=== PATIENT | male | born 2000 | race Caucasian/White ===

== ENCOUNTER 2024-05-28 23:45 | Outpatient (BNV) | payer OTHER, SELFPAY | END 2024-05-31 10:30 | PROVIDERS: Admitting Provider Psychiatry & Neurology Psychiatry; Visit Provider Specialist | DX: M79.604 Pain in right leg (principal) | CPT/HCPCS: 93971 ==

== ENCOUNTER 2024-05-28 23:45 | Outpatient (BNV) | payer OTHER, SELFPAY | END 2024-05-30 14:55 | PROVIDERS: Admitting Provider Psychiatry & Neurology Psychiatry; Visit Provider Nuclear Medicine | DX: R60.0 Localized edema (principal) | CPT/HCPCS: 72170; 73552; 73560 ==

== ENCOUNTER 2024-05-28 23:45 | Outpatient (BNV) | payer OTHER, SELFPAY | END 2024-06-03 17:35 | PROVIDERS: Admitting Provider Psychiatry & Neurology Psychiatry; Visit Provider Radiology Diagnostic Radiology | DX: F29 Unspecified psychosis not due to a substance or known physiological condition (principal); M25.561 Pain in right knee; M25.562 Pain in left knee | CPT/HCPCS: 70551; 73560 ==

== ENCOUNTER 2024-05-28 23:45 | Inpatient (IN) | payer OTHER, SELFPAY ==
--- NOTE | ~2024-05-28 | US_ITS ---
CLINICAL HISTORY: injury to right thigh, swelling, bruising pain Venous duplex ultrasound right lower extremity Comparison: None Findings: The visualized deep veins are fully compressible with normal Doppler color flow and spectral tracings. No popliteal cyst. IMPRESSION: 1. Negative for right lower extremity deep vein thrombosis. This document has been electronically signed by: Blayne Kumar MD on 05/31/2024 11:23:37
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
--- NOTE | ~2024-05-28 | XR_ITS ---
EXAMINATION: XR KNEE, LEFT CLINICAL INFORMATION: pt putting himself on the floor COMPARISON: None available. TECHNIQUE: 2 views of the left knee. FINDINGS: No fracture or joint effusion. Alignment is anatomic. Joint spaces are maintained. No abnormal soft tissue calcification. XR/XR knee LT 2V IMPRESSION: Unremarkable left knee. Electronically signed by: Paul Burr MD 06/04/2024 01:12 PM EST
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
--- NOTE | ~2024-05-28 | XR_ITS ---
EXAMINATION: XR KNEE, RIGHT CLINICAL INFORMATION: pt putting himself on the floor COMPARISON: Right knee 05/30/2024 TECHNIQUE: Two views of the right knee. FINDINGS: AP and lateral view right knee reveals no visible acute fracture, dislocation or bony erosive changes. The soft tissues are normal. XR/XR knee RT 2V IMPRESSION: Unremarkable right knee exam. Unchanged to previous study 05/30/2024. Electronically signed by: Paul Burr MD 06/04/2024 01:11 PM [facility]
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
[2024-05-29] MEDS: Nicotine 21 MG PATCH.TD24 TRANSDERMA (01:51)
[2024-05-29] MEDS: Nicotine Polacrilex 2 MG GUM 4 MG BUCCAL ×5 (01:52→13:13)
--- NOTE | 2024-05-29 01:52 | PC.NURSE ---
@0130 pt became elevated after NRT not available yet. Pt called 911 emergency line on both pt phones, redirection attempted. Provider contacted about NRT, pt swearing at emergency personnel on phone, security also notified. Pt hung up both phones and able to talk about what happened with [facility]. Pt went to group room A to work out my shit Pt in Group room A, wearing only underwear, performing sit up and breathing excersises. RN approached pt with NRT patch and gum as per pt request, pt calmer, cooperative with RN, demonstrated a back bend to RN. Pt then put johnnies back on and returned to kitchen area, accepted water and juice at this time. @0145 [place] PD called unit to discuss pt behaviour, told RN pt had told them you're fired repeatedly and requested badge numbers. Emergency personnel state that if pt continues to harass them, an officer will charge pt with wrongful use of 911. Pt informed and stated I dare them to try, I will call way above their head higher ups. They're useless. remained in relative control at that time.
[2024-05-29 04:00] VITALS: BMI 40.7
[2024-05-29] MEDS: Acetaminophen 325 MG TABLET 650 MG PO (06:02)
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
[2024-05-29 08:00] VITALS: BP 161/95; PULSE 110; RESP 18; TEMP 36.3; O2SAT 98
[2024-05-29] MEDS: hydrOXYzine HCL 25 MG TABLET PO (09:09)
[2024-05-29] MEDS: OLANZapine ODT 10 MG TAB.RAPDIS TRANSLINGU (09:09)
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
[2024-05-29 15:16] VITALS: BP 138/100
[2024-05-29] MEDS: cloNIDine HCL 0.1 MG TABLET PO ×2 (15:16→21:48)
[2024-05-29 20:15] VITALS: BP 133/69; PULSE 108; TEMP 37; O2SAT 96
[2024-05-29] MEDS: OLANZapine 10 MG TABLET PO (21:44)
[2024-05-29] MEDS: Divalproex Sodium 250 MG TABLET.DR PO (21:45)
[2024-05-29] MEDS: Melatonin 3 MG TABLET 6 MG PO (21:46)
[2024-05-29] MEDS: traZODone HCL 50 MG TABLET PO (21:46)
[2024-05-29 21:48] VITALS: BP 133/69
[2024-05-30] MEDS: Nicotine Polacrilex 2 MG GUM 4 MG BUCCAL ×3 (03:35→21:05)
[2024-05-30] MEDS: Acetaminophen 325 MG TABLET 650 MG PO ×3 (04:05→22:41)
[2024-05-30 09:45] VITALS: BP 152/94
[2024-05-30] MEDS: Divalproex Sodium 250 MG TABLET.DR PO ×2 (09:45→21:04)
[2024-05-30] MEDS: cloNIDine HCL 0.1 MG TABLET PO ×2 (09:45→21:05)
[2024-05-30] MEDS: Nicotine 21 MG PATCH.TD24 TRANSDERMA (09:51)
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
[2024-05-30] MEDS: hydrOXYzine HCL 25 MG TABLET PO ×2 (12:48→22:25)
[2024-05-30] MEDS: OLANZapine ODT 10 MG TAB.RAPDIS TRANSLINGU ×2 (15:35→22:25)
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
[2024-05-30 20:00] VITALS: BP 141/78; PULSE 74; RESP 18; TEMP 36.4; O2SAT 98
[2024-05-30] MEDS: traZODone HCL 50 MG TABLET PO (21:04)
[2024-05-30] MEDS: Melatonin 3 MG TABLET 6 MG PO (21:04)
[2024-05-30] MEDS: OLANZapine 10 MG TABLET PO (21:05)
[2024-05-31] MEDS: traZODone HCL 50 MG TABLET PO ×2 (01:16→20:42)
[2024-05-31] MEDS: Nicotine Polacrilex 2 MG GUM 4 MG BUCCAL ×4 (01:16→20:42)
[2024-05-31] MEDS: Ibuprofen 800 MG TABLET PO ×2 (01:16→16:17)
[2024-05-31] MEDS: hydrOXYzine HCL 25 MG TABLET PO ×3 (06:15→18:08)
[2024-05-31] MEDS: Acetaminophen 325 MG TABLET 650 MG PO ×3 (06:57→18:08)
--- NOTE | 2024-05-31 08:36 | P.PNPSI_ITS ---
Subjective Subjective Date of Service: 05/31/24 Reason For Visit: biploar disorder, attention deificit/hyper act. Interim History: Met with patient. Discussed with Nursing. Also noted hospitalist evaluation yesterday and ordering of lower leg ultrasound. Otherwise conservative manage ment for right leg swelling and pain. Patient reports today that swelling is getting better as is bruising. Reports having nightmares that his family is in danger which is upsetting. Also talking about martial arts and Chinese culture. No SI or HI. Reports overall feeling safe. Regarding medications would like long-acting medications if possible also remains here for discharge Medication Compliance: Intermittent Side effects from medications: No Attending Groups: Intermittent Review of Systems Acute medical concerns: No Review of Systems Review of Systems Negative except for that which is stated in the HPI Constitutional: Reports as per HPI Eyes: Reports as per HPI Reports as per HPI Cardiovascular: Reports as per HPI Respiratory: Reports as per HPI Gastrointestinal: Reports as per HPI Genitourinary: Reports as per HPI Musculoskeletal: Reports as per HPI Skin/Breast: Reports as per HPI Reports as per HPI Psychiatric: Reports as per HPI Endocrine: Reports as per HPI Hematologic/Lymphatic: Reports as per HPI Allergic/Immunologic: Reports as per HPI Mental Status Exam Mental Status Exam Patient Appearance: Disheveled Patient Orientation: Person Level of Consciousness: Appropriate Patient Behavior: Cooperative and Anxious Mood Description: Blunted Affect Description: Withdrawn Ability to Follow Directions: Fair Speech Pattern: Clear Diagnostics Vital Signs (24Hr): Vital Signs - 24 hr 05/30/24 09:45 05/30/24 20:00 Temperature 97.5 F Pulse Rate 74 Respiratory Rate 18 Blood Pressure 152/94 H 141/78 H Pulse Oximetry 98 Oxygen Delivery Method Room Air BMI result Body Mass Index 40.7 Medications Medications Current Medications Acetaminophen (Acetaminophen 325 Mg Tablet) 650 mg PO Q6H PRN PRN Reason: Headache/Pain Mild Scale (1-3) Last Admin: 05/31/24 06:57 Dose: 650 mg Al Hydroxide/Mg Hydroxide (Magnesium Hydrox/Alum Hydrox 30 Ml Oral.Susp) 30 ml PO Q6H PRN PRN Reason: Heartburn/Nausea Clonidine HCl (Clonidine Hcl 0.1 Mg Tablet) 0.1 mg PO BID [facility]; Protocol Last Admin: 05/30/24 21:05 Dose: 0.1 mg Divalproex Sodium (Divalproex Sodium 250 Mg Tablet.Dr) 250 mg PO BID [facility] Last Admin: 05/30/24 21:04 Dose: 250 mg Hydroxyzine HCl (Hydroxyzine Hcl 25 Mg Tablet) 25 mg PO Q6H PRN PRN Reason: Anxiety Last Admin: 05/31/24 06:15 Dose: 25 mg Ibuprofen (Ibuprofen 800 Mg Tablet) 800 mg PO Q8H PRN PRN Reason: muscle pain Last Admin: 05/31/24 01:16 Dose: 800 mg Magnesium Hydroxide (Milk Of Magnesia 30 Ml Oral.Susp) 30 ml PO DAILY PRN PRN Reason: Constipation Melatonin (Melatonin 3 Mg Tablet) 6 mg PO BEDTIME PRN PRN Reason: Insomnia Last Admin: 05/30/24 21:04 Dose: 6 mg Nicotine (Nicotine 21 Mg Patch.Td24) 21 mg TRANSDERMA DAILY [facility] Last Admin: 05/30/24 09:51 Dose: 21 mg Nicotine Polacrilex (Nicotine Polacrilex 2 Mg Gum) 4 mg BUCCAL Q1H PRN PRN Reason: Nicotine Cravings Last Admin: 05/31/24 01:16 Dose: 4 mg Olanzapine (Olanzapine Odt 10 Mg Tab.Rapdis) 10 mg TRANSLINGU BID PRN PRN Reason: agitation Last Admin: 05/30/24 22:25 Dose: 10 mg Olanzapine (Olanzapine 10 Mg Tablet) 10 mg PO BEDTIME [facility] Last Admin: 05/30/24 21:05 Dose: 10 mg Trazodone HCl (Trazodone Hcl 50 Mg Tablet) 50 mg PO BEDTIME MRX1 PRN PRN Reason: Insomnia Last Admin: 05/31/24 01:16 Dose: 50 mg Allergies Allergies Allergy/AdvReac Type Severity Reaction Status Date / Time No Known Allergies Allergy Verified 05/29/24 00:47 Assessment & Plan Assessment & Plan (1) Medical clearance for psychiatric admission: Status: Acute Code(s): Z00.8 - Encounter for other general examination (2) Right leg swelling: Status: Acute Code(s): M79.89 - Other specified soft tissue disorders (3) Bipolar 1 disorder: Status: Acute Code(s): F31.9 - Bipolar disorder, unspecified (4) ADHD: Status: Acute Code(s): F90.9 - Attention-deficit hyperactivity disorder, unspecified type Plan Patient is a 23-year-old male with history of bipolar disorder and ADHD, who was brought to ER on a section 12 via police after he was found wandering and making suicidal statements. Plan: 12B 15 minute safety checks Obtain collateral Reviewed home medications from crisis report, continue home medications. Start: Depakote 250mg PO BID Zyprexa 10mg PO bedtime clonidine 0.1mg PO BID Discharge planning 05/30/2024: Declining medications. Encouraged adherence. Right leg x-rays unremarkable for fractures. Will ask for hospitalist evaluation around any other testing recommendations and/or management. Add Motrin. 05/31/2024: Patient requesting long-acting medications and will change Depakote to extended release 500 mg bedtime. Reason for continued inpatient stay Substantial Risk for: inability to function Time Spent With Patient Time: Total time managing care of this patient today ____ minutes.
[2024-05-31 08:43] VITALS: BP 121/65; PULSE 108; RESP 16; TEMP 36.9; O2SAT 98
[2024-05-31 08:45] VITALS: BP 121/65
[2024-05-31] MEDS: OLANZapine ODT 10 MG TAB.RAPDIS TRANSLINGU (08:45)
[2024-05-31] MEDS: cloNIDine HCL 0.1 MG TABLET PO ×2 (08:45→20:42)
[2024-05-31] MEDS: Nicotine 21 MG PATCH.TD24 TRANSDERMA (08:45)
[2024-05-31] MEDS: Divalproex Sodium 250 MG TABLET.DR PO (08:45)
--- NOTE | 2024-05-31 17:59 | PC.NURSE ---
Pt called 911 and asked to speak to state police to report t/w for denying access to phone. This is despite the fact pt was granted access to phone yesterday and informed at that time he would not be allowed access again.
[2024-05-31 20:00] VITALS: BP 159/109; PULSE 110; RESP 18; TEMP 36.7; O2SAT 96
[2024-05-31] MEDS: OLANZapine 10 MG TABLET PO (20:42)
[2024-05-31] MEDS: Divalproex Sodium ER 500 MG TAB.ER.24H PO (20:42)
[2024-05-31] MEDS: Melatonin 3 MG TABLET 6 MG PO (20:42)
[2024-06-01 08:00] VITALS: BP 156/87; PULSE 123; RESP 18; TEMP 36.9; O2SAT 96
[2024-06-01] MEDS: Nicotine 21 MG PATCH.TD24 TRANSDERMA (09:01)
[2024-06-01] MEDS: cloNIDine HCL 0.1 MG TABLET PO ×2 (09:01→21:31)
[2024-06-01] MEDS: Ibuprofen 800 MG TABLET PO ×2 (09:31→17:06)
[2024-06-01] MEDS: Acetaminophen 325 MG TABLET 650 MG PO ×2 (11:25→16:31)
[2024-06-01] MEDS: OLANZapine ODT 10 MG TAB.RAPDIS TRANSLINGU ×2 (13:13→15:06)
[2024-06-01] MEDS: hydrOXYzine HCL 25 MG TABLET PO ×2 (13:13→21:33)
[2024-06-01] MEDS: Nicotine Polacrilex 2 MG GUM 4 MG BUCCAL ×4 (13:34→23:28)
--- NOTE | 2024-06-01 14:51 | P.PNPSI_ITS ---
Subjective Subjective Date of Service: 06/01/24 Reason For Visit: biploar disorder, attention deificit/hyper act. Subjective Notes: Conditional Voluntary Interim History: Active on unit. disorganized. grandiose. Hyperverbal. Circumstantial. Pt stated, you guys blocked 112, if you do that, its a violation. I'm going to jorge you guys out and fire everyone. [employer] will protect you and everyone. I only want to kill bad people . Signed CV. pt asked for increase in medication. Increased Depakote to 1000mg PO bedtime. Medication Compliance: Yes Side effects from medications: No Mental Status Exam Mental Status Exam Patient Appearance: Disheveled Patient Orientation: Person, Place and Situation Level of Consciousness: Awake and Restless Patient Behavior: Talkative, Swearing and Good Eye Contact Mood Description: Expansive Affect Description: Labile Ability to Follow Directions: Fair Speech Pattern: Clear, Rambling, Loud, Pressured and Includes Profanity Delusions: Grandiose Thought Process: Racing Thought Content: positive for Circumstantial and positive for Homicidal Ideation Judgement: Poor Diagnostics Vital Signs (24Hr): Vital Signs - 24 hr 05/31/24 20:00 06/01/24 08:00 Temperature 98.0 F 98.5 F Pulse Rate 110 H 123 H Respiratory Rate 18 18 Blood Pressure 159/109 H 156/87 H Pulse Oximetry 96 96 Oxygen Delivery Method Room Air Room Air BMI result Body Mass Index 40.7 Medications Medications Current Medications Acetaminophen (Acetaminophen 325 Mg Tablet) 650 mg PO Q6H PRN PRN Reason: Headache/Pain Mild Scale (1-3) Last Admin: 06/01/24 11:25 Dose: 650 mg Al Hydroxide/Mg Hydroxide (Magnesium Hydrox/Alum Hydrox 30 Ml Oral.Susp) 30 ml PO Q6H PRN PRN Reason: Heartburn/Nausea Clonidine HCl (Clonidine Hcl 0.1 Mg Tablet) 0.1 mg PO BID [facility]; Protocol Last Admin: 06/01/24 09:01 Dose: 0.1 mg Divalproex Sodium (Divalproex Sodium Er 500 Mg Tab.Er.24h) 1,000 mg PO BEDTIME [facility] Hydroxyzine HCl (Hydroxyzine Hcl 25 Mg Tablet) 25 mg PO Q6H PRN PRN Reason: Anxiety Last Admin: 06/01/24 13:13 Dose: 25 mg Ibuprofen (Ibuprofen 800 Mg Tablet) 800 mg PO Q8H PRN PRN Reason: muscle pain Last Admin: 06/01/24 09:31 Dose: 800 mg Magnesium Hydroxide (Milk Of Magnesia 30 Ml Oral.Susp) 30 ml PO DAILY PRN PRN Reason: Constipation Melatonin (Melatonin 3 Mg Tablet) 6 mg PO BEDTIME PRN PRN Reason: Insomnia Last Admin: 05/31/24 20:42 Dose: 6 mg Nicotine (Nicotine 21 Mg Patch.Td24) 21 mg TRANSDERMA DAILY [facility] Last Admin: 06/01/24 09:01 Dose: 21 mg Nicotine Polacrilex (Nicotine Polacrilex 2 Mg Gum) 4 mg BUCCAL Q1H PRN PRN Reason: Nicotine Cravings Last Admin: 06/01/24 13:34 Dose: 4 mg Olanzapine (Olanzapine Odt 10 Mg Tab.Rapdis) 10 mg TRANSLINGU BID PRN PRN Reason: agitation Last Admin: 06/01/24 13:13 Dose: 10 mg Olanzapine (Olanzapine 10 Mg Tablet) 10 mg PO BEDTIME [facility] Last Admin: 05/31/24 20:42 Dose: 10 mg Trazodone HCl (Trazodone Hcl 50 Mg Tablet) 50 mg PO BEDTIME MRX1 PRN PRN Reason: Insomnia Last Admin: 05/31/24 20:42 Dose: 50 mg Allergies Allergies Allergy/AdvReac Type Severity Reaction Status Date / Time No Known Allergies Allergy Verified 05/29/24 00:47 Assessment & Plan Assessment & Plan (1) Medical clearance for psychiatric admission: Status: Acute Code(s): Z00.8 - Encounter for other general examination (2) Right leg swelling: Status: Acute Code(s): M79.89 - Other specified soft tissue disorders (3) Bipolar 1 disorder: Status: Acute Code(s): F31.9 - Bipolar disorder, unspecified (4) ADHD: Status: Acute Code(s): F90.9 - Attention-deficit hyperactivity disorder, unspecified type Plan Patient is a 23-year-old male with history of bipolar disorder and ADHD, who was brought to ER on a section 12 via police after he was found wandering and making suicidal statements. Plan: 12B 15 minute safety checks Obtain collateral Reviewed home medications from crisis report, continue home medications. Start: Depakote 250mg PO BID Zyprexa 10mg PO bedtime clonidine 0.1mg PO BID Discharge planning 05/30/2024: Declining medications. Encouraged adherence. Right leg x-rays un remarkable for fractures. Will ask for hospitalist evaluation around any other testing recommendations and/or management. Add Motrin. 05/31/2024: Patient requesting long-acting medications and will change Depakote to extended release 500 mg bedtime. 06/01:Active on unit. disorganized. grandiose. Hyperverbal. Circumstantial. Pt stated, you guys blocked 112, if you do that, its a violation. I'm going to jorge you guys out and fire everyone. [employer] will protect you and everyone. I only want to kill bad people . Signed CV. pt asked for increase in medication. Increased Depakote to 1000mg PO bedtime. Patient educated on: medication risk/benefits Reason for continued inpatient stay Substantial Risk for: harm to others and med/psych decompensation Time Spent With Patient Time: Total time managing care of this patient today _20___ minutes.
[2024-06-01] MEDS: Lidocaine 4 % Patch ADH..PATCH 2 PATCH TRANSDERMA (17:06)
[2024-06-01 20:00] VITALS: BP 131/73; PULSE 115; RESP 20; TEMP 36.4
[2024-06-01] MEDS: Divalproex Sodium ER 500 MG TAB.ER.24H 1000 MG PO (21:32)
[2024-06-01] MEDS: traZODone HCL 50 MG TABLET PO (21:32)
[2024-06-01] MEDS: Melatonin 3 MG TABLET 6 MG PO (21:33)
[2024-06-01] MEDS: OLANZapine 10 MG TABLET PO (21:34)
[2024-06-02] MEDS: traZODone HCL 50 MG TABLET PO (01:25)
[2024-06-02] MEDS: Ibuprofen 800 MG TABLET PO ×3 (01:26→18:12)
[2024-06-02 08:30] VITALS: BP 161/108; PULSE 110; RESP 20; TEMP 35.8; O2SAT 97
[2024-06-02] MEDS: Nicotine 21 MG PATCH.TD24 TRANSDERMA (08:35)
[2024-06-02] MEDS: hydrOXYzine HCL 25 MG TABLET PO ×2 (08:36→16:49)
[2024-06-02] MEDS: cloNIDine HCL 0.1 MG TABLET PO ×2 (08:36→21:11)
[2024-06-02] MEDS: OLANZapine ODT 10 MG TAB.RAPDIS TRANSLINGU ×2 (08:36→15:18)
[2024-06-02] MEDS: Nicotine Polacrilex 2 MG GUM 4 MG BUCCAL ×4 (09:03→18:44)
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
[2024-06-02] MEDS: Simethicone 80 MG TAB.CHEW PO ×3 (11:35→21:11)
[2024-06-02] MEDS: Acetaminophen 325 MG TABLET 650 MG PO ×2 (11:35→21:10)
[2024-06-02 19:40] VITALS: BP 168/92; PULSE 99; TEMP 36.6; O2SAT 94
[2024-06-02] MEDS: Divalproex Sodium ER 500 MG TAB.ER.24H 1000 MG PO (21:10)
[2024-06-02] MEDS: clonazePAM 0.5 MG TABLET PO (21:10)
[2024-06-02] MEDS: OLANZapine 10 MG TABLET PO (21:10)
[2024-06-02 21:11] VITALS: BP 168/92
[2024-06-02] MEDS: Melatonin 3 MG TABLET 6 MG PO (21:11)
[2024-06-03] MEDS: Nicotine Polacrilex 2 MG GUM 4 MG BUCCAL ×5 (00:38→19:20)
[2024-06-03] MEDS: traZODone HCL 50 MG TABLET PO ×3 (00:38→23:06)
[2024-06-03] MEDS: Ibuprofen 800 MG TABLET PO ×3 (05:35→19:03)
[2024-06-03] MEDS: Acetaminophen 325 MG TABLET 650 MG PO (05:35)
[2024-06-03] MEDS: Magnesium Hydrox/Alum Hydrox 30 ML ORAL.SUSP PO (05:35)
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
--- NOTE | 2024-06-03 07:26 | PC.NURSE ---
At approximately 0550, this patient walked by a trans peer, stating loudly [employer] Drag Race is on, and I'm a homophobe! I'm not watching it! This conventional underwriter attempted to set boundaries with this patient, but he simply walked quickly down the hallway, leaving this conventional underwriter to comfort the peer. This patient later apologized to the peer who had been upset by the comment.
[2024-06-03 08:00] VITALS: BP 145/90; PULSE 103; RESP 18; TEMP 36.6; O2SAT 97
[2024-06-03] MEDS: clonazePAM 0.5 MG TABLET PO ×3 (08:42→20:27)
[2024-06-03] MEDS: cloNIDine HCL 0.1 MG TABLET PO ×2 (08:42→20:27)
[2024-06-03] MEDS: OLANZapine ODT 10 MG TAB.RAPDIS TRANSLINGU ×2 (08:43→19:03)
[2024-06-03] MEDS: Simethicone 80 MG TAB.CHEW PO ×3 (08:43→20:27)
[2024-06-03] MEDS: Nicotine 21 MG PATCH.TD24 TRANSDERMA (08:46)
[2024-06-03] MEDS: hydrOXYzine HCL 25 MG TABLET PO ×2 (09:53→18:38)
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
[2024-06-03] MEDS: chlorproMAZINE HCl 100 MG TABLET PO ×3 (10:42→23:06)
[2024-06-03] MEDS: Methylphenidate HCl 5 MG TABLET PO (13:10)
[2024-06-03 20:00] VITALS: BP 141/90; PULSE 132; RESP 15; TEMP 36.5; O2SAT 97
[2024-06-03] MEDS: OLANZapine 10 MG TABLET 20 MG PO (20:27)
[2024-06-03] MEDS: Divalproex Sodium ER 500 MG TAB.ER.24H 1500 MG PO (20:28)
[2024-06-03] MEDS: Melatonin 3 MG TABLET 6 MG PO (23:06)
[2024-06-04] MEDS: Nicotine Polacrilex 2 MG GUM 4 MG BUCCAL ×5 (00:05→18:17)
[2024-06-04] MEDS: Milk of Magnesia 30 ML ORAL.SUSP PO (05:23)
[2024-06-04] MEDS: hydrOXYzine HCL 25 MG TABLET PO ×3 (06:30→20:47)
[2024-06-04 07:00] VITALS: BMI 41.7
[2024-06-04 10:37] VITALS: BP 151/94; PULSE 122; RESP 16; TEMP 36.9; O2SAT 99
[2024-06-04] MEDS: Simethicone 80 MG TAB.CHEW PO ×3 (10:42→22:31)
[2024-06-04] MEDS: Nicotine 21 MG PATCH.TD24 TRANSDERMA (10:42)
[2024-06-04] MEDS: cloNIDine HCL 0.1 MG TABLET PO ×2 (10:42→22:30)
[2024-06-04] MEDS: Methylphenidate HCl 5 MG TABLET PO (10:42)
[2024-06-04] MEDS: clonazePAM 0.5 MG TABLET PO ×3 (10:42→22:30)
[2024-06-04] MEDS: chlorproMAZINE HCl 100 MG TABLET PO ×4 (11:32→22:31)
[2024-06-04] MEDS: OLANZapine ODT 10 MG TAB.RAPDIS TRANSLINGU (14:19)
--- NOTE | 2024-06-04 14:31 | P.PNPSI_ITS ---
Subjective Subjective Date of Service: 06/04/24 Reason For Visit: biploar disorder, attention deificit/hyper act. Subjective Notes: Conditional Voluntary and 3 Day Healthcare Proxy: No Guardianship: No Medical Problems Affecting Mental Status: No Interim History: Angry, threatening to this sign writer hand. Demanding discharge I will liam you. Team reports chlorpromazine helps, pt slept 5 hours. Scheduled chlorpromazine to 100 mg tid Tolerated Ritalin I need more Overall calmer Worried we will make him into a zombie. Education attempted Brief interactions with pt as he is threatening and we are attempting to prevent violence. Medication Compliance: Yes Side effects from medications: No Attending Groups: No Review of Systems Acute medical concerns: No Review of Systems Review of Systems Yes all other systems are reviewed and are negative Mental Status Exam Mental Status Exam Patient Appearance: Appropriate Patient Orientation: Person and Place Level of Consciousness: Alert Patient Behavior: Talkative, Aggressive, Belligerent, Distractible and Good Eye Contact Mood Description: Hostile and Labile Affect Description: Hostile and Labile Patient Cognition Impaired: No Ability to Follow Directions: Fair Speech Pattern: Spontaneous Speech Memory Description: Remote Impaired Hallucinations: None Delusions: Paranoid Ideation, Grandiose and Present Thought Process: Racing, Illogical and Distracted Thought Content: positive for Racing, positive for Circumstantial, positive for Preoccupation and positive for Loose Associations Depressive Symptoms: Increased Irritability Abnormal Motor Activity Signs and Symptoms: Agitation and Restlessness Judgement: Poor Diagnostics Vital Signs (24Hr): Vital Signs - 24 hr 06/03/24 20:00 06/04/24 10:37 Temperature 97.7 F 98.4 F Pulse Rate 132 H 122 H Respiratory Rate 15 16 Blood Pressure 141/90 H 151/94 H Pulse Oximetry 97 99 Oxygen Delivery Method Room Air BMI result Body Mass Index 41.7 Imaging Radiology Impressions: ITS Impressions Knee X-Ray 06/03/24 13:00 IMPRESSION: Unremarkable left knee. Electronically signed by: Paul Burr MD 06/04/2024 01:12 PM EST RP Knee X-Ray 06/03/24 13:00 IMPRESSION: Unremarkable right knee exam. Unchanged to previous study 05/30/2024. Electronically signed by: Paul Burr MD 06/04/2024 01:11 PM EST RP Brain MRI 06/03/24 17:35 IMPRESSION: No acute brain abnormality. Low position/ectopia cerebellar tonsils. Developmental venous anomaly, right frontoparietal region. Electronically signed by: Star Alan MD 06/04/2024 09:50 AM EST RP Medications Medications Current Medications Acetaminophen (Acetaminophen 325 Mg Tablet) 650 mg PO Q6H PRN PRN Reason: Headache/Pain Mild Scale (1-3) Last Admin: 06/03/24 05:35 Dose: 650 mg Al Hydroxide/Mg Hydroxide (Magnesium Hydrox/Alum Hydrox 30 Ml Oral.Susp) 30 ml PO Q6H PRN PRN Reason: Heartburn/Nausea Last Admin: 06/03/24 05:35 Dose: 30 ml Chlorpromazine HCl (Chlorpromazine Hcl 100 Mg Tablet) 100 mg PO TID PRN PRN Reason: psychosis,shanelle,agitation Last Admin: 06/03/24 23:06 Dose: 100 mg Chlorpromazine HCl (Chlorpromazine Hcl 100 Mg Tablet) 100 mg PO TID RADHA Last Admin: 06/04/24 11:32 Dose: 100 mg Clonazepam (Clonazepam 0.5 Mg Tablet) 0.5 mg PO TID RADHA Last Admin: 06/04/24 10:42 Dose: 0.5 mg Clonidine HCl (Clonidine Hcl 0.1 Mg Tablet) 0.1 mg PO BID [facility]; Protocol Last Admin: 06/04/24 10:42 Dose: 0.1 mg Divalproex Sodium (Divalproex Sodium Er 500 Mg Tab.Er.24h) 1,500 mg PO BEDTIME RADHA Last Admin: 06/03/24 20:28 Dose: 1,500 mg Hydroxyzine HCl (Hydroxyzine Hcl 25 Mg Tablet) 25 mg PO Q6H PRN PRN Reason: Anxiety Last Admin: 06/04/24 06:30 Dose: 25 mg Ibuprofen (Ibuprofen 800 Mg Tablet) 800 mg PO Q8H PRN PRN Reason: muscle pain Last Admin: 06/03/24 19:03 Dose: 800 mg Magnesium Hydroxide (Milk Of Magnesia 30 Ml Oral.Susp) 30 ml PO DAILY PRN PRN Reason: Constipation Last Admin: 06/04/24 05:23 Dose: 30 ml Melatonin (Melatonin 3 Mg Tablet) 6 mg PO BEDTIME PRN PRN Reason: Insomnia Last Admin: 06/03/24 23:06 Dose: 6 mg Methylphenidate HCl (Methylphenidate Hcl 5 Mg Tablet) 5 mg PO DAILY [facility] Last Admin: 06/04/24 10:42 Dose: 5 mg Multi-Ingred Cream/Lotion/Oil/Oint (Mineral Oil/Petrolatum,White 106 Gm Tube) 1 appl TOPICAL TID [facility]; Protocol Nicotine (Nicotine 21 Mg Patch.Td24) 21 mg TRANSDERMA DAILY [facility] Last Admin: 06/04/24 10:42 Dose: 21 mg Nicotine Polacrilex (Nicotine Polacrilex 2 Mg Gum) 4 mg BUCCAL Q1H PRN PRN Reason: Nicotine Cravings Last Admin: 06/04/24 06:32 Dose: 4 mg Olanzapine (Olanzapine Odt 10 Mg Tab.Rapdis) 10 mg TRANSLINGU BID PRN PRN Reason: agitation Last Admin: 06/03/24 19:03 Dose: 10 mg Olanzapine (Olanzapine 10 Mg Tablet) 20 mg PO BEDTIME [facility] Last Admin: 06/03/24 20:27 Dose: 20 mg Simethicone (Simethicone 80 Mg Tab.Chew) 80 mg PO QIDWMHS [facility] Last Admin: 06/04/24 11:43 Dose: Not Given Trazodone HCl (Trazodone Hcl 50 Mg Tablet) 50 mg PO BEDTIME MRX1 PRN PRN Reason: Insomnia Last Admin: 06/03/24 23:06 Dose: 50 mg Allergies Allergies Allergy/AdvReac Type Severity Reaction Status Date / Time No Known Allergies Allergy Verified 05/29/24 00:47 Assessment & Plan Assessment & Plan (1) Medical clearance for psychiatric admission: Status: Acute Code(s): Z00.8 - Encounter for other general examination (2) Right leg swelling: Status: Acute Code(s): M79.89 - Other specified soft tissue disorders (3) Bipolar 1 disorder: Status: Acute Code(s): F31.9 - Bipolar disorder, unspecified (4) ADHD: Status: Acute Code(s): F90.9 - Attention-deficit hyperactivity disorder, unspecified type Plan Patient is a 23-year-old male with history of bipolar disorder and ADHD, who was brought to ER on a section 12 via police after he was found wandering and making suicidal statements. Plan: 12B 15 minute safety checks Obtain collateral Reviewed home medications from crisis report, continue home medications. Start: Depakote 250mg PO BID Zyprexa 10mg PO bedtime clonidine 0.1mg PO BID Discharge planning 05/30/2024: Declining medications. Encouraged adherence. Right leg x-rays unremarkable for fractures. Will ask for hospitalist evaluation around any other testing recommendations and/or management. Add Motrin. 05/31/2024: Patient requesting long-acting medications and will change Depakote to extended release 500 mg bedtime. 06/01:Active on unit. disorganized. grandiose. Hyperverbal. Circumstantial. Pt stated, you guys blocked 112, if you do that, its a violation. I'm going to jorge you guys out and fire everyone. [employer] will protect you and everyone. I only want to kill bad people . Signed CV. pt asked for increase in medication. Increased Depakote to 1000mg PO bedtime. 06/04: Schedule chlorpromazine 100 mg tid Reason for continued inpatient stay Substantial Risk for: rapid decompensation Time Spent With Patient Time: Total time managing care of this patient today ____ minutes.
[2024-06-04] MEDS: Ibuprofen 800 MG TABLET PO (14:36)
[2024-06-04] MEDS: Acetaminophen 325 MG TABLET 650 MG PO (18:17)
[2024-06-04 20:00] VITALS: BP 145/82; PULSE 127; RESP 16; TEMP 35.9; O2SAT 98
[2024-06-04 22:30] VITALS: BP 135/82
[2024-06-04] MEDS: OLANZapine 10 MG TABLET 20 MG PO (22:30)
[2024-06-04] MEDS: Divalproex Sodium ER 500 MG TAB.ER.24H 1500 MG PO (22:31)
[2024-06-05] MEDS: hydrOXYzine HCL 25 MG TABLET PO ×2 (03:39→21:21)
[2024-06-05] MEDS: Acetaminophen 325 MG TABLET 650 MG PO ×2 (03:39→19:23)
[2024-06-05] MEDS: Ibuprofen 800 MG TABLET PO ×2 (03:39→20:33)
[2024-06-05] MEDS: Melatonin 3 MG TABLET 6 MG PO ×2 (03:39→20:33)
[2024-06-05] MEDS: Nicotine Polacrilex 2 MG GUM 4 MG BUCCAL ×4 (03:43→20:34)
[2024-06-05 08:12] VITALS: BP 138/84; PULSE 101; TEMP 36.6; O2SAT 99
[2024-06-05] MEDS: cloNIDine HCL 0.1 MG TABLET PO ×2 (08:12→20:33)
[2024-06-05] MEDS: Nicotine 21 MG PATCH.TD24 TRANSDERMA (08:12)
[2024-06-05] MEDS: clonazePAM 0.5 MG TABLET PO ×3 (08:12→20:33)
[2024-06-05] MEDS: chlorproMAZINE HCl 100 MG TABLET PO ×5 (08:12→21:21)
[2024-06-05] MEDS: Simethicone 80 MG TAB.CHEW PO ×3 (08:13→20:33)
[2024-06-05] MEDS: Methylphenidate HCl 5 MG TABLET PO ×2 (08:13→12:28)
[2024-06-05] MEDS: Mineral Oil/Petrolatum,White 106 GM Tube 1 APPL TOPICAL ×2 (08:23→14:49)
--- NOTE | 2024-06-05 09:52 | HO.PSYCHPN ---
Subjective Subjective Date of Service: 06/05/24 Reason For Visit: biploar disorder, attention deificit/hyper act. Subjective Notes: Conditional Voluntary and 3 Day Healthcare Proxy: No Guardianship: No Medical Problems Affecting Mental Status: No Interim History: Improving with greater insight at times. Asks for med changes which are completed. When discharge is not granted, he becomes threatening. Medication Compliance: Yes Side effects from medications: Yes (finds olanzapine too sedating, speech slurring, will trial dc) Attending Groups: Intermittent Review of Systems Acute medical concerns: No Medical Review of Systems: unchanged Review of Systems Review of Systems leg pain s/p injury Mental Status Exam Mental Status Exam Patient Appearance: Appropriate Patient Orientation: Person, Place and Situation Level of Consciousness: Alert Patient Behavior: Talkative, Belligerent, Distractible, Good Eye Contact and Impulsive Mood Description: Hostile and Labile Affect Description: Hostile and Labile Patient Cognition Impaired: No Ability to Follow Directions: Fair Speech Pattern: Spontaneous Speech Memory Description: Remote Impaired Hallucinations: None Delusions: Paranoid Ideation, Grandiose and Present Thought Process: Racing, Illogical and Distracted Thought Content: positive for Racing, positive for Circumstantial, positive for Preoccupation and positive for Loose Associations Depressive Symptoms: Increased Irritability Abnormal Motor Activity Signs and Symptoms: Agitation and Restlessness Judgement: Poor Diagnostics Vital Signs (24Hr): Vital Signs - 24 hr 06/04/24 10:37 06/04/24 20:00 06/04/24 22:30 Temperature 98.4 F 96.7 F L Pulse Rate 122 H 127 H Respiratory Rate 16 16 Blood Pressure 151/94 H 145/82 H 135/82 Pulse Oximetry 99 98 Oxygen Delivery Method Room Air Room Air BMI result Body Mass Index 41.7 Labs 06/05/24 09:29 06/05/24 09:29 Imaging Radiology Impressions: ITS Impressions Knee X-Ray 06/03/24 13:00 IMPRESSION: Unremarkable left knee. Electronically signed by: Paul Burr MD 06/04/2024 01:12 PM EST RP Knee X-Ray 06/03/24 13:00 IMPRESSION: Unremarkable right knee exam. Unchanged to previous study 05/30/2024. Electronically signed by: Paul Burr MD 06/04/2024 01:11 PM EST RP Brain MRI 06/03/24 17:35 IMPRESSION: No acute brain abnormality. Low position/ectopia cerebellar tonsils. Developmental venous anomaly, right frontoparietal region. Electronically signed by: Star Alan MD 06/04/2024 09:50 AM EST Medications Medications Current Medications Acetaminophen (Acetaminophen 325 Mg Tablet) 650 mg PO Q6H PRN PRN Reason: Headache/Pain Mild Scale (1-3) Last Admin: 06/05/24 03:39 Dose: 650 mg Al Hydroxide/Mg Hydroxide (Magnesium Hydrox/Alum Hydrox 30 Ml Oral.Susp) 30 ml PO Q6H PRN PRN Reason: Heartburn/Nausea Last Admin: 06/03/24 05:35 Dose: 30 ml Chlorpromazine HCl (Chlorpromazine Hcl 100 Mg Tablet) 100 mg PO TID PRN PRN Reason: psychosis,shanelle,agitation Last Admin: 06/04/24 20:47 Dose: 100 mg Chlorpromazine HCl (Chlorpromazine Hcl 100 Mg Tablet) 100 mg PO TID RADHA Last Admin: 06/05/24 08:12 Dose: 100 mg Clonazepam (Clonazepam 0.5 Mg Tablet) 0.5 mg PO TID RADHA Last Admin: 06/05/24 08:12 Dose: 0.5 mg Clonidine HCl (Clonidine Hcl 0.1 Mg Tablet) 0.1 mg PO BID [facility]; Protocol Last Admin: 06/05/24 08:12 Dose: 0.1 mg Divalproex Sodium (Divalproex Sodium Er 500 Mg Tab.Er.24h) 1,500 mg PO BEDTIME RAD[facility] Last Admin: 06/04/24 22:31 Dose: 1,500 mg Hydroxyzine HCl (Hydroxyzine Hcl 25 Mg Tablet) 25 mg PO Q6H PRN PRN Reason: Anxiety Last Admin: 06/05/24 03:39 Dose: 25 mg Ibuprofen (Ibuprofen 800 Mg Tablet) 800 mg PO Q8H PRN PRN Reason: muscle pain Last Admin: 06/05/24 03:39 Dose: 800 mg Magnesium Hydroxide (Milk Of Magnesia 30 Ml Oral.Susp) 30 ml PO DAILY PRN PRN Reason: Constipation Last Admin: 06/04/24 05:23 Dose: 30 ml Melatonin (Melatonin 3 Mg Tablet) 6 mg PO BEDTIME PRN PRN Reason: Insomnia Last Admin: 06/05/24 03:39 Dose: 6 mg Methylphenidate HCl (Methylphenidate Hcl 5 Mg Tablet) 5 mg PO 0900,1300 [facility] Multi-Ingred Cream/Lotion/Oil/Oint (Mineral Oil/Petrolatum,White 106 Gm Tube) 1 appl TOPICAL TID [facility]; Protocol Last Admin: 06/05/24 08:23 Dose: 1 appl Nicotine (Nicotine 21 Mg Patch.Td24) 21 mg TRANSDERMA DAILY [facility] Last Admin: 06/05/24 08:12 Dose: 21 mg Nicotine Polacrilex (Nicotine Polacrilex 2 Mg Gum) 4 mg BUCCAL Q1H PRN PRN Reason: Nicotine Cravings Last Admin: 06/05/24 08:23 Dose: 4 mg Olanzapine (Olanzapine Odt 10 Mg Tab.Rapdis) 10 mg TRANSLINGU BID PRN PRN Reason: agitation Last Admin: 06/04/24 14:19 Dose: 10 mg Olanzapine (Olanzapine 10 Mg Tablet) 20 mg PO BEDTIME [facility] Last Admin: 06/04/24 22:30 Dose: 20 mg Simethicone (Simethicone 80 Mg Tab.Chew) 80 mg PO QIDWMHS [facility] Last Admin: 06/05/24 08:13 Dose: 80 mg Trazodone HCl (Trazodone Hcl 50 Mg Tablet) 50 mg PO BEDTIME MRX1 PRN PRN Reason: Insomnia Last Admin: 06/03/24 23:06 Dose: 50 mg Allergies Allergies Allergy/AdvReac Type Severity Reaction Status Date / Time No Known Allergies Allergy Verified 05/29/24 00:47 Assessment & Plan Assessment & Plan (1) Medical clearance for psychiatric admission: Status: Acute Code(s): Z00.8 - Encounter for other general examination (2) Right leg swelling: Status: Acute Code(s): M79.89 - Other specified soft tissue disorders (3) Bipolar 1 disorder: Status: Acute Code(s): F31.9 - Bipolar disorder, unspecified (4) ADHD: Status: Acute Code(s): F90.9 - Attention-deficit hyperactivity disorder, unspecified type Plan Patient is a 23-year-old male with history of bipolar disorder and ADHD, who was brought to ER on a section 12 via police after he was found wandering and making suicidal statements. Plan: 12B 15 minute safety checks Obtain collateral Reviewed home medications from crisis report, continue home medications. Start: Depakote 250mg PO BID Zyprexa 10mg PO bedtime clonidine 0.1mg PO BID Discharge planning 05/30/2024: Declining medications. Encouraged adherence. Right leg x-rays unremarkable for fractures. Will ask for hospitalist evaluation around any other testing recommendations and/or management. Add Motrin. 05/31/2024: Patient requesting long-acting medications and will change Depakote to extended release 500 mg bedtime. 06/01:Active on unit. disorganized. grandiose. Hyperverbal. Circumstantial. Pt stated, you guys blocked 112, if you do that, its a violation. I'm going to jorge you guys out and fire everyone. [employer] will protect you and everyone. I only want to kill bad people . Signed CV. pt asked for increase in medication. Increased Depakote to 1000mg PO bedtime. 06/04: Schedule chlorpromazine 100 mg tid 06/05: Increase prn hydroxyzine to q4h Change Ritalin to 10 mg a.m. Reason for continued inpatient stay Substantial Risk for: rapid decompensation Time Spent With Patient Time: Total time managing care of this patient today ____ minutes.
[2024-06-05 10:07] LABS: MANUAL DIFF FLAG NO
[2024-06-05 10:10] LABS: Basophils Percent Auto 0.5 % (0-2); Eosinophils Absolute Auto 0.3 X10*3/uL (0.0-0.4); Eosinophils Percent Auto 3.6 % (0-4); Hematocrit 43.1 % (42.0-52.0); Hemoglobin 14.6 g/dl (14.0-18.0); Imm Gran Abs Auto 0.04 X10*3/uL (0.00-0.03); Imm Gran Pct Auto 0.5 % (0.0-0.4); Lymphocytes Absolute Auto 1.5 X10*3/uL (1.2-4.9); Lymphocytes Percent Auto 18.3 % (20-40); Mean Corpuscular HGB Conc 33.9 g/dl (31.0-36.0); Mean Corpuscular Volume 88.7 fL (80.0-98.0); Mean Platelet Volume 10.3 fL (9.4-12.4); Monocytes Absolute Auto 0.7 X10*3/uL (0.1-1.2); Neutrophils Absolute Auto 5.4 x10*3/uL (2.0-8.3); Neutrophils Percent Auto 68.1 % (45-73); Platelet Count 297 X10*3/uL (160-400); Red Blood Count 4.86 X10*6/uL (4.60-5.80); Red Cell Distribution Width 13.2 % (11.0-16.0)
[2024-06-05 10:37] LABS: Alanine Aminotransferase 81 U/L (0-40); Albumin Level 4.2 g/dL (3.5-5.0); Alkaline Phosphatase 82 U/L (39-117); Anion Gap 12 (12-20); Aspartate Amino Transferase 40 U/L (5-37); Bilirubin Total 0.4 mg/dL (0.0-1.0); Blood Urea Nitrogen 13 mg/dL (9-16); Calcium 9.1 mg/dL (8.4-10.2); Carbon Dioxide 29 mmol/L (22-29); Chloride 108 mmol/L (96-108); Cholesterol 143 mg/dL (<200); Estimated Glomerular Filt Rate > 60; Glucose Random 88 mg/dL (60-115); HDL Cholesterol 39 mg/dL (>40); LDL Cholesterol Calculated 77 mg/dL (<100); Potassium 4.2 mmol/L (3.3-5.1); Sodium 145 mmol/L (135-145); Total Protein 6.4 g/dL (6.5-8.0); Triglycerides 139 mg/dL (<150)
[2024-06-05 10:40] LABS: Estimated Average Glucose 100 mg/dL; Hemoglobin A1C 124.1433 umol/L; Hemoglobin A1c % 5.1 % (<6.0); Total Hemoglobin (HGBA1C) 3789.1784 umol/L
[2024-06-05 10:52] LABS: Thyroid Stimulating Hormone 1.81 uIU/mL (0.32-4.0)
[2024-06-05] MEDS: bisacodyL 5 MG TABLET.DR 10 MG PO (10:58)
[2024-06-05] MEDS: Milk of Magnesia 30 ML ORAL.SUSP PO (10:58)
[2024-06-05 11:05] LABS: Vitamin B12 701 pg/mL (200-900)
[2024-06-05] MEDS: OLANZapine ODT 10 MG TAB.RAPDIS TRANSLINGU (13:14)
[2024-06-05 20:00] VITALS: BP 130/73; PULSE 123; RESP 16; TEMP 36.7; O2SAT 98
[2024-06-05] MEDS: Divalproex Sodium ER 500 MG TAB.ER.24H 1500 MG PO (20:33)
[2024-06-05] MEDS: traZODone HCL 50 MG TABLET PO (21:21)
[2024-06-06] MEDS: traZODone HCL 50 MG TABLET PO ×2 (01:03→20:53)
[2024-06-06] MEDS: Nicotine Polacrilex 2 MG GUM 4 MG BUCCAL ×7 (01:17→22:32)
[2024-06-06] MEDS: OLANZapine ODT 10 MG TAB.RAPDIS TRANSLINGU ×2 (05:24→20:53)
[2024-06-06] MEDS: Acetaminophen 325 MG TABLET 650 MG PO ×2 (05:56→17:37)
[2024-06-06] MEDS: hydrOXYzine HCL 25 MG TABLET PO ×3 (05:56→20:54)
[2024-06-06] MEDS: Ibuprofen 800 MG TABLET PO ×2 (06:46→17:37)
[2024-06-06 08:42] VITALS: BP 139/65; PULSE 104; TEMP 36.3; O2SAT 95
[2024-06-06] MEDS: Mineral Oil/Petrolatum,White 106 GM Tube 1 APPL TOPICAL ×3 (09:04→20:53)
[2024-06-06] MEDS: clonazePAM 0.5 MG TABLET PO ×3 (09:04→20:52)
[2024-06-06] MEDS: chlorproMAZINE HCl 100 MG TABLET PO ×4 (09:04→20:52)
[2024-06-06] MEDS: Methylphenidate HCl 10 MG TABLET PO (09:05)
[2024-06-06] MEDS: cloNIDine HCL 0.1 MG TABLET PO ×2 (09:05→20:52)
[2024-06-06] MEDS: Nicotine 21 MG PATCH.TD24 TRANSDERMA (09:05)
[2024-06-06] MEDS: Simethicone 80 MG TAB.CHEW PO ×4 (09:05→20:59)
[2024-06-06] MEDS: Milk of Magnesia 30 ML ORAL.SUSP PO (09:43)
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
[2024-06-06 19:40] VITALS: BP 146/86; PULSE 86; RESP 18; TEMP 36.1; O2SAT 97
[2024-06-06] MEDS: Divalproex Sodium ER 500 MG TAB.ER.24H 1500 MG PO (20:52)
[2024-06-06] MEDS: Melatonin 3 MG TABLET 6 MG PO (20:54)
[2024-06-07] MEDS: Acetaminophen 325 MG TABLET 650 MG PO ×3 (03:22→17:00)
[2024-06-07] MEDS: traZODone HCL 50 MG TABLET PO ×2 (03:22→21:53)
[2024-06-07] MEDS: hydrOXYzine HCL 25 MG TABLET PO ×3 (03:22→16:03)
[2024-06-07] MEDS: chlorproMAZINE HCl 100 MG TABLET PO ×4 (03:23→21:53)
[2024-06-07 07:46] VITALS: PULSE 100; TEMP 35.9; O2SAT 98
[2024-06-07 07:55] VITALS: BP 140/93
[2024-06-07] MEDS: Nicotine 21 MG PATCH.TD24 TRANSDERMA (07:55)
[2024-06-07] MEDS: clonazePAM 0.5 MG TABLET PO ×3 (07:55→21:53)
[2024-06-07] MEDS: Simethicone 80 MG TAB.CHEW PO ×4 (07:55→21:54)
[2024-06-07] MEDS: cloNIDine HCL 0.1 MG TABLET PO ×2 (07:55→21:52)
[2024-06-07] MEDS: Methylphenidate HCl 10 MG TABLET PO (07:56)
[2024-06-07] MEDS: Nicotine Polacrilex 2 MG GUM 4 MG BUCCAL ×5 (08:25→22:00)
[2024-06-07] MEDS: Mineral Oil/Petrolatum,White 106 GM Tube 1 APPL TOPICAL ×3 (08:25→21:58)
[2024-06-07] MEDS: Milk of Magnesia 30 ML ORAL.SUSP PO (09:58)
[2024-06-07] MEDS: Ibuprofen 800 MG TABLET PO ×2 (10:40→22:06)
[2024-06-07 13:23] LABS: Valproate 55.9 mcg/mL (50.0-100.0)
[2024-06-07 13:25] LABS: Ammonia 35 umol/L (13-55)
[2024-06-07 13:28] LABS: Alanine Aminotransferase 65 U/L (0-40); Albumin Level 3.9 g/dL (3.5-5.0); Alkaline Phosphatase 76 U/L (39-117); Aspartate Amino Transferase 40 U/L (5-37); Bilirubin Direct < 0.2 mg/dL (0.0-0.5); Bilirubin Total 0.2 mg/dL (0.0-1.0); Total Protein 6.1 g/dL (6.5-8.0)
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
[2024-06-07 20:00] VITALS: BP 140/81; PULSE 113; TEMP 36.1; O2SAT 98
[2024-06-07] MEDS: Divalproex Sodium ER 500 MG TAB.ER.24H 1500 MG PO (21:51)
[2024-06-07] MEDS: Melatonin 3 MG TABLET 6 MG PO (21:51)
[2024-06-07 21:52] VITALS: BP 140/81
[2024-06-08] MEDS: traZODone HCL 50 MG TABLET PO ×2 (01:32→21:34)
[2024-06-08] MEDS: chlorproMAZINE HCl 100 MG TABLET PO ×5 (01:33→21:30)
[2024-06-08] MEDS: Nicotine Polacrilex 2 MG GUM 4 MG BUCCAL ×3 (05:13→15:01)
[2024-06-08] MEDS: Acetaminophen 325 MG TABLET 650 MG PO ×2 (05:26→16:29)
[2024-06-08] MEDS: hydrOXYzine HCL 25 MG TABLET PO ×2 (05:27→10:15)
[2024-06-08] MEDS: Mineral Oil/Petrolatum,White 106 GM Tube 1 APPL TOPICAL ×3 (08:34→21:31)
[2024-06-08] MEDS: clonazePAM 0.5 MG TABLET PO ×3 (08:35→21:31)
[2024-06-08] MEDS: Methylphenidate HCl 10 MG TABLET PO (08:35)
[2024-06-08] MEDS: Simethicone 80 MG TAB.CHEW PO ×4 (08:36→21:30)
[2024-06-08 08:37] VITALS: BP 146/86; PULSE 106; RESP 20; TEMP 36; O2SAT 96
[2024-06-08] MEDS: cloNIDine HCL 0.1 MG TABLET PO ×2 (08:38→21:30)
[2024-06-08] MEDS: Nicotine 21 MG PATCH.TD24 TRANSDERMA (09:19)
[2024-06-08] MEDS: Ibuprofen 800 MG TABLET PO (09:44)
[2024-06-08] MEDS: OLANZapine ODT 10 MG TAB.RAPDIS TRANSLINGU (12:56)
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
[2024-06-08 20:00] VITALS: BP 141/101; PULSE 110; TEMP 37; O2SAT 99
[2024-06-08 21:30] VITALS: BP 141/101
[2024-06-08] MEDS: Divalproex Sodium ER 500 MG TAB.ER.24H 1500 MG PO (21:30)
[2024-06-09 08:29] VITALS: BP 122/79; PULSE 95; RESP 16; TEMP 36.6; O2SAT 98
[2024-06-09] MEDS: Methylphenidate HCl 10 MG TABLET PO ×2 (08:30→17:21)
[2024-06-09] MEDS: clonazePAM 0.5 MG TABLET PO ×3 (08:30→20:24)
[2024-06-09] MEDS: cloNIDine HCL 0.1 MG TABLET PO ×2 (08:30→20:24)
[2024-06-09] MEDS: chlorproMAZINE HCl 100 MG TABLET PO ×3 (08:30→20:23)
[2024-06-09] MEDS: Nicotine 21 MG PATCH.TD24 TRANSDERMA (08:30)
[2024-06-09] MEDS: Simethicone 80 MG TAB.CHEW PO ×4 (08:30→20:24)
[2024-06-09] MEDS: Acetaminophen 325 MG TABLET 650 MG PO ×2 (08:54→19:21)
[2024-06-09] MEDS: Nicotine Polacrilex 2 MG GUM 4 MG BUCCAL ×3 (08:54→13:49)
[2024-06-09] MEDS: Ibuprofen 800 MG TABLET PO (13:49)
[2024-06-09] MEDS: Mineral Oil/Petrolatum,White 106 GM Tube 1 APPL TOPICAL ×2 (14:39→20:23)
[2024-06-09] MEDS: Nicotine Polacrilex Lozenge 4 MG LOZENGE BUCCAL ×4 (15:07→22:28)
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
[2024-06-09 20:00] VITALS: BP 145/80; PULSE 84; TEMP 36.6; O2SAT 98
[2024-06-09] MEDS: Divalproex Sodium ER 250 MG TAB.ER.24H 1750 MG PO (20:23)
[2024-06-09] MEDS: Clotrimazole 1 % Cream 15 GM TUBE 1 APPL TOPICAL (20:23)
[2024-06-09] MEDS: Melatonin 3 MG TABLET 6 MG PO (20:23)
[2024-06-09 20:24] VITALS: BP 140/80
[2024-06-09] MEDS: hydrOXYzine HCL 25 MG TABLET PO (21:46)
[2024-06-09] MEDS: traZODone HCL 50 MG TABLET PO ×2 (22:28→23:48)
[2024-06-09] MEDS: OLANZapine ODT 10 MG TAB.RAPDIS TRANSLINGU (23:25)
[2024-06-10] VITALS (9 sets, daily range): BP systolic 113–146; BP diastolic 59–94; PULSE 94–123; RESP 16–20; TEMP 36.2–36.3; O2SAT 97–98
--- NOTE | 2024-06-10 00:59 | PC.NURSE ---
A puddle was discovered on the patient's floor by staff. Patient reported he urinated in a cup, which overfilled, spilling on the floor.
[2024-06-10] MEDS: Acetaminophen 325 MG TABLET 650 MG PO ×3 (01:04→19:29)
[2024-06-10] MEDS: Nicotine Polacrilex Lozenge 4 MG LOZENGE BUCCAL ×6 (01:04→19:29)
--- NOTE | 2024-06-10 01:08 | PC.NURSE ---
Patient stated I drink too much water. When I'm in bed, I wake up and realize I have to pee. So when I go to sit up, my core engages, you know? And I get like, three steps and there's no holding it back...you know what happens.
[2024-06-10] MEDS: Ibuprofen 800 MG TABLET PO ×2 (01:47→10:24)
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
--- NOTE | 2024-06-10 06:03 | PC.NURSE ---
Patient complained of pain over the course of this shift in his right leg, which has been an ongoing issue. 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 call or contact centre coach SEA Pratt was tiger texted; the hospitalist, Dr Hernnadez, was then contacted. The patient has been examined as of the time of this writing and a stat order for a surgery consult has been ordered.
[2024-06-10] MEDS: Methylphenidate HCl 10 MG TABLET PO ×2 (08:13→17:05)
[2024-06-10] MEDS: Simethicone 80 MG TAB.CHEW PO ×4 (08:13→23:00)
[2024-06-10] MEDS: chlorproMAZINE HCl 100 MG TABLET PO ×3 (08:13→22:58)
[2024-06-10] MEDS: clonazePAM 0.5 MG TABLET PO ×3 (08:13→23:01)
[2024-06-10] MEDS: cloNIDine HCL 0.1 MG TABLET PO ×2 (08:13→23:01)
[2024-06-10] MEDS: Nicotine 21 MG PATCH.TD24 TRANSDERMA (08:14)
[2024-06-10 08:30] LABS: MANUAL DIFF FLAG NO
[2024-06-10 08:47] LABS: Basophils Absolute Auto 0.1 X10*3/uL (0.0-0.2); Basophils Percent Auto 0.4 % (0-2); Eosinophils Absolute Auto 0.1 X10*3/uL (0.0-0.4); Eosinophils Percent Auto 0.8 % (0-4); Hematocrit 42.9 % (42.0-52.0); Hemoglobin 14.1 g/dl (14.0-18.0); Imm Gran Abs Auto 0.15 X10*3/uL (0.00-0.03); Imm Gran Pct Auto 1.2 % (0.0-0.4); Lymphocytes Absolute Auto 1.2 X10*3/uL (1.2-4.9); Lymphocytes Percent Auto 10.1 % (20-40); Mean Corpuscular HGB Conc 32.9 g/dl (31.0-36.0); Mean Corpuscular Hemoglobin 29.3 pg (27.0-33.0); Mean Platelet Volume 10.7 fL (9.4-12.4); Monocytes Absolute Auto 0.9 X10*3/uL (0.1-1.2); Monocytes Percent Auto 7.6 % (2-11); Neutrophils Absolute Auto 9.8 x10*3/uL (2.0-8.3); Neutrophils Percent Auto 79.9 % (45-73); Platelet Count 304 X10*3/uL (160-400); Red Blood Count 4.82 X10*6/uL (4.60-5.80); Red Cell Distribution Width 12.8 % (11.0-16.0); White Blood Count 12.3 X10*3/uL (4.8-10.8)
[2024-06-10 08:51] LABS: Alanine Aminotransferase 76 U/L (0-40); Albumin Level 3.9 g/dL (3.5-5.0); Alkaline Phosphatase 85 U/L (39-117); Anion Gap 13 (12-20); Aspartate Amino Transferase 43 U/L (5-37); Bilirubin Total 0.2 mg/dL (0.0-1.0); Blood Urea Nitrogen 13 mg/dL (9-16); C Reactive Protein 2.32 mg/dL (< or = 0.50); Calcium 8.7 mg/dL (8.4-10.2); Carbon Dioxide 24 mmol/L (22-29); Chloride 108 mmol/L (96-108); Creatinine Clr Calc Pharmacy 201.1; Estimated Glomerular Filt Rate > 60; Glucose Random 138 mg/dL (60-115); Potassium 4.2 mmol/L (3.3-5.1); Sodium 141 mmol/L (135-145); Total Protein 6.1 g/dL (6.5-8.0)
[2024-06-10 09:31] LABS: Erythrocyte Sedimentation Rate 4 MM/HR (0-15)
[2024-06-10] MEDS: Lidocaine 4 % Patch ADH..PATCH 1 PATCH TRANSDERMA (09:33)
[2024-06-10] MEDS: iohexoL 350 MG/ML 100 ML INFUS..BTL IV (11:14)
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
[2024-06-10] MEDS: Lidocaine 4 % Patch ADH..PATCH 2 PATCH TRANSDERMA (13:33)
[2024-06-10] MEDS: Milk of Magnesia 30 ML ORAL.SUSP PO (14:17)
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
[2024-06-10] MEDS: hydrOXYzine HCL 25 MG TABLET PO (22:58)
[2024-06-10] MEDS: Melatonin 3 MG TABLET 6 MG PO (22:59)
[2024-06-10] MEDS: traZODone HCL 50 MG TABLET PO (23:00)
[2024-06-10] MEDS: Divalproex Sodium ER 250 MG TAB.ER.24H 1750 MG PO (23:03)
[2024-06-11] MEDS: Acetaminophen 325 MG TABLET 650 MG PO ×3 (09:31→21:44)
[2024-06-11] MEDS: Simethicone 80 MG TAB.CHEW PO ×4 (09:32→20:46)
[2024-06-11] MEDS: cloNIDine HCL 0.1 MG TABLET PO ×2 (09:32→20:44)
[2024-06-11] MEDS: chlorproMAZINE HCl 100 MG TABLET PO ×4 (09:32→20:47)
[2024-06-11] MEDS: clonazePAM 0.5 MG TABLET PO ×3 (09:32→20:46)
[2024-06-11] MEDS: Methylphenidate HCl 10 MG TABLET PO ×2 (09:33→17:18)
[2024-06-11] MEDS: Nicotine 21 MG PATCH.TD24 TRANSDERMA (09:34)
[2024-06-11] MEDS: Lidocaine 4 % Patch ADH..PATCH 2 PATCH TRANSDERMA (09:37)
[2024-06-11] MEDS: Nicotine Polacrilex Lozenge 4 MG LOZENGE BUCCAL ×3 (09:41→21:44)
[2024-06-11 09:46] VITALS: BP 123/59; PULSE 108; RESP 18; TEMP 37.6; O2SAT 96
[2024-06-11] MEDS: OLANZapine ODT 10 MG TAB.RAPDIS TRANSLINGU (10:44)
[2024-06-11] MEDS: Ibuprofen 800 MG TABLET PO ×2 (11:14→23:16)
--- NOTE | 2024-06-11 15:50 | PM.PNGS ---
Subjective Subjective Date of Service: 06/11/24 Interval history: I was asked to re aspirate the seroma on the patient because of reaccumulation and redness of the skin The patient denies any new complaints Physical Exam Vital Signs: Vital Signs: Last Vital Signs Temp 99.6 F 06/11/24 09:46 Pulse 108 H 06/11/24 09:46 Resp 18 06/11/24 09:46 BP 123/59 L 06/11/24 09:46 Pulse Ox 96 06/11/24 09:46 O2 Del Method Room Air 06/11/24 09:46 BMI result Body Mass Index 41.7 Const: Other: Ambulates with a walker General: comfortable and no acute distress Resp: Effort & Inspection: normal respiratory effort Extrem: Other: Boggy swelling on the anterior aspect of the right thigh with medial aspect with some redness, no open wound, no discharge Objective Data Active Medications Acetaminophen (Acetaminophen 325 Mg Tablet) 650 mg PO Q6H PRN PRN Reason: Headache/Pain Mild Scale (1-3) Last Admin: 06/11/24 15:27 Dose: 650 mg Documented By: BAILEY Al Hydroxide/Mg Hydroxide (Magnesium Hydrox/Alum Hydrox 30 Ml Oral.Susp) 30 ml PO Q6H PRN PRN Reason: Heartburn/Nausea Last Admin: 06/03/24 05:35 Dose: 30 ml Documented By: TOSIN Bisacodyl (Bisacodyl 5 Mg Tablet.Dr) 10 mg PO DAILY PRN PRN Reason: Constipation Last Admin: 06/05/24 10:58 Dose: 10 mg Documented By: LEENA Chlorpromazine HCl (Chlorpromazine Hcl 100 Mg Tablet) 100 mg PO TID PRN PRN Reason: psychosis,shanelle,agitation Last Admin: 06/11/24 10:44 Dose: 100 mg Documented By: BAILEY Chlorpromazine HCl (Chlorpromazine Hcl 100 Mg Tablet) 100 mg PO TID [facility] Last Admin: 06/11/24 14:09 Dose: 100 mg Documented By: BAILEY Clonazepam (Clonazepam 0.5 Mg Tablet) 0.5 mg PO TID [facility] Last Admin: 06/11/24 14:08 Dose: 0.5 mg Documented By: BAILEY Clonidine HCl (Clonidine Hcl 0.1 Mg Tablet) 0.1 mg PO BID [facility]; Protocol Last Admin: 06/11/24 09:32 Dose: 0.1 mg Documented By: BAILEY Clotrimazole (Clotrimazole 1 % Cream 15 Gm Tube) 1 appl TOPICAL BID [facility]; Protocol Last Admin: 06/11/24 09:48 Dose: Not Given Documented By: BAILEY Non-Admin Reason: Patient Refused Divalproex Sodium (Divalproex Sodium Er 250 Mg Tab.Er.24h) 1,750 mg PO BEDTIME [facility] Last Admin: 06/10/24 23:03 Dose: 1,750 mg Documented By: JIGNA Hydroxyzine HCl (Hydroxyzine Hcl 25 Mg Tablet) 25 mg PO Q4H PRN PRN Reason: Anxiety Last Admin: 06/10/24 22:58 Dose: 25 mg Documented By: JIGNA Ibuprofen (Ibuprofen 800 Mg Tablet) 800 mg PO Q8H PRN PRN Reason: muscle pain Last Admin: 06/11/24 11:14 Dose: 800 mg Documented By: BAILEY Lidocaine (Lidocaine 4 % Patch Adh..Patch) 2 patch TRANSDERMA DAILY [facility]; Protocol Last Admin: 06/11/24 09:37 Dose: 2 patch Documented By: BAILEY Magnesium Hydroxide (Milk Of Magnesia 30 Ml Oral.Susp) 30 ml PO DAILY PRN PRN Reason: Constipation Last Admin: 06/10/24 14:17 Dose: 30 ml Documented By: NICOAMARJIT Melatonin (Melatonin 3 Mg Tablet) 6 mg PO BEDTIME PRN PRN Reason: Insomnia Last Admin: 06/10/24 22:59 Dose: 6 mg Documented By: JIGNA Methylphenidate HCl (Methylphenidate Hcl 10 Mg Tablet) 10 mg PO BID@0800,1800 [facility] Last Admin: 06/11/24 09:33 Dose: 10 mg Documented By: BAILEY Multi-Ingred Cream/Lotion/Oil/Oint (Mineral Oil/Petrolatum,White 106 Gm Tube) 1 appl TOPICAL TID [facility]; Protocol Last Admin: 06/11/24 15:32 Dose: Not Given Documented By: BAILEY Non-Admin Reason: Patient Refused Nicotine (Nicotine 21 Mg Patch.Td24) 21 mg TRANSDERMA DAILY [facility] Last Admin: 06/11/24 09:34 Dose: 21 mg Documented By: BAILEY Nicotine Polacrilex (Nicotine Polacrilex Lozenge 4 Mg Lozenge) 4 mg BUCCAL Q2H PRN PRN Reason: Nicotine Cravings Last Admin: 06/11/24 15:28 Dose: 4 mg Documented By: BAILEY Pt Own (Act Dry Mouth Gum 1 Piece Of Gum) 1 piece of gum PO TID PRN PRN Reason: dry mouth Olanzapine (Olanzapine Odt 10 Mg Tab.Rapdis) 10 mg TRANSLINGU BID PRN PRN Reason: agitation Last Admin: 06/11/24 10:44 Dose: 10 mg Documented By: BAILEY Simethicone (Simethicone 80 Mg Tab.Chew) 80 mg PO QIDWMHS [facility] Last Admin: 06/11/24 11:16 Dose: 80 mg Documented By: BAILEY Trazodone HCl (Trazodone Hcl 50 Mg Tablet) 50 mg PO BEDTIME MRX1 PRN PRN Reason: Insomnia Last Admin: 06/10/24 23:00 Dose: 50 mg Documented By: JIGNA Labs 06/10/24 07:46 06/10/24 07:46 Procedures Date of Service Date of Service: 06/11/24 Procedure Note Procedure Note: Preop diagnosis seroma, anterior thigh Postop diagnosis: The same Procedure: Aspiration of seroma with a large gauge needle The area of the anterior thigh was prepped and draped. Lidocaine 1% was used for local anesthesia. I used a gauge 18 needle to aspirate the area. About 90 cc of seromatous fluid was drained. He tolerated procedure well. There were no immediate complications. Progress Note: A&P Assessment and plan (1) Seroma due to trauma: Status: Acute Assessment and Plan: I have been requested to we aspirate the seroma on the right thigh We aspiration was done and I removed additional 90 cc with a large gauge needle He tolerated the procedure well He likely has an organized hematoma as well the deeper layers of the subcutaneous fat If the redness persists, he may need to be on oral antibiotics Time Spent With Patient Time: Total time managing care of this patient today ____ minutes. Quality Stroke Does the patient have a stroke diagnosis?: No VTE Prior VTE?: No VTE Risk Level:: Medical - low VTE Device Contraindication: Treatment Not Indicated VTE Drug Contraindication: Treatment Not Indicated
[2024-06-11] MEDS: hydrOXYzine HCL 25 MG TABLET PO ×2 (16:29→20:46)
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
[2024-06-11 20:00] VITALS: BP 140/61; PULSE 92; RESP 16; TEMP 36.3; O2SAT 97
[2024-06-11] MEDS: Divalproex Sodium ER 250 MG TAB.ER.24H 1750 MG PO (20:42)
[2024-06-11 20:44] VITALS: BP 140/61
[2024-06-11] MEDS: traZODone HCL 50 MG TABLET PO ×2 (20:46→23:17)
[2024-06-11] MEDS: Melatonin 3 MG TABLET 6 MG PO (20:47)
[2024-06-11 22:30] VITALS: BP 137/85; PULSE 122; TEMP 36.3
[2024-06-12] MEDS: Nicotine Polacrilex Lozenge 4 MG LOZENGE BUCCAL ×4 (02:26→19:08)
[2024-06-12 08:00] VITALS: BP 173/81; PULSE 118; RESP 18; TEMP 36.4; O2SAT 96
[2024-06-12] MEDS: Lidocaine 4 % Patch ADH..PATCH 2 PATCH TRANSDERMA (08:04)
[2024-06-12] MEDS: clonazePAM 0.5 MG TABLET PO ×3 (08:05→21:51)
[2024-06-12] MEDS: Ibuprofen 800 MG TABLET PO ×2 (08:05→16:18)
[2024-06-12] MEDS: Methylphenidate HCl 10 MG TABLET PO ×2 (08:05→17:05)
[2024-06-12] MEDS: chlorproMAZINE HCl 100 MG TABLET PO ×4 (08:05→23:24)
[2024-06-12] MEDS: cloNIDine HCL 0.1 MG TABLET PO ×2 (08:05→21:49)
[2024-06-12] MEDS: Simethicone 80 MG TAB.CHEW PO ×4 (08:05→21:54)
[2024-06-12] MEDS: Milk of Magnesia 30 ML ORAL.SUSP PO (08:07)
[2024-06-12] MEDS: Nicotine 21 MG PATCH.TD24 TRANSDERMA (08:49)
--- NOTE | 2024-06-12 10:02 | P.PNPSI_ITS ---
Subjective Subjective Date of Service: 06/12/24 Reason For Visit: biploar disorder, attention deificit/hyper act. Subjective Notes: Section 7 Healthcare Proxy: No Guardianship: No Medical Problems Affecting Mental Status: No Interim History: Team and pt report ongoing edema, redness with progression R leg. Hospitalist consult ordered for eval and for eval of HTN Discussed antibiotics with Dr. Noriega initiated per his suggestion. Behavior is in control. Angry and expressive at times with grandiose process. Medication Compliance: Yes Side effects from medications: No Attending Groups: Yes Review of Systems Acute medical concerns: No Medical Review of Systems: unchanged Review of Systems Review of Systems leg hematoma with increase in edema, redness HTN Mental Status Exam Mental Status Exam Patient Appearance: Appropriate Patient Orientation: Person, Place, Time and Situation Level of Consciousness: Alert Patient Behavior: Appropriate, Talkative, Cooperative and Good Eye Contact Mood Description: Hostile (at times) and Labile Affect Description: Labile Patient Cognition Impaired: No Ability to Follow Directions: Good Speech Pattern: Spontaneous Speech Memory Description: Episodic Impaired Hallucinations: None Delusions: Grandiose Thought Process: Rumination Thought Content: positive for Perseveration Depressive Symptoms: Increased Irritability (at times) and Thoughts of /Suicide (denies) Judgement: Fair Diagnostics Vital Signs (24Hr): Vital Signs - 24 hr 06/11/24 20:00 06/11/24 20:44 06/11/24 22:30 Temperature 97.3 F 97.3 F Pulse Rate 92 122 H Respiratory Rate 16 Blood Pressure 140/61 H 140/61 H 137/85 Pulse Oximetry 97 Oxygen Delivery Method Room Air 06/12/24 08:00 Temperature 97.5 F Pulse Rate 118 H Respiratory Rate 18 Blood Pressure 173/81 H Pulse Oximetry 96 Oxygen Delivery Method Room Air BMI result Body Mass Index 41.7 Labs 06/10/24 07:46 06/10/24 07:46 Imaging Radiology Impressions: ITS Impressions Knee X-Ray 06/03/24 13:00 IMPRESSION: Unremarkable left knee. Electronically signed by: Paul Burr MD 06/04/2024 01:12 PM [facility] [place] Knee X-Ray 06/03/24 13:00 IMPRESSION: Unremarkable right knee exam. Unchanged to previous study 05/30/2024. Electronically signed by: Paul Burr MD 06/04/2024 01:11 PM EST RP Brain MRI 06/03/24 17:35 IMPRESSION: No acute brain abnormality. Low position/ectopia cerebellar tonsils. Developmental venous anomaly, right frontoparietal region. Electronically signed by: Star Alan MD 06/04/2024 09:50 AM EST RP Femur CT 06/10/24 11:07 IMPRESSION: 1. No bony fractures. 2. Large subacute appearing hematoma anterior to the vastus musculature as described. No CT evidence suggestion of compartment syndrome. Electronically signed by: Salas Yo MD 06/10/2024 12:08 PM EST RP Medications Medications Current Medications Acetaminophen (Acetaminophen 325 Mg Tablet) 650 mg PO Q6H PRN PRN Reason: Headache/Pain Mild Scale (1-3) Last Admin: 06/11/24 21:44 Dose: 650 mg Al Hydroxide/Mg Hydroxide (Magnesium Hydrox/Alum Hydrox 30 Ml Oral.Susp) 30 ml PO Q6H PRN PRN Reason: Heartburn/Nausea Last Admin: 06/03/24 05:35 Dose: 30 ml Bisacodyl (Bisacodyl 5 Mg Tablet.Dr) 10 mg PO DAILY PRN PRN Reason: Constipation Last Admin: 06/05/24 10:58 Dose: 10 mg Chlorpromazine HCl (Chlorpromazine Hcl 100 Mg Tablet) 100 mg PO TID PRN PRN Reason: psychosis,shanelle,agitation Last Admin: 06/11/24 10:44 Dose: 100 mg Chlorpromazine HCl (Chlorpromazine Hcl 100 Mg Tablet) 100 mg PO TID RADHA Last Admin: 06/12/24 08:05 Dose: 100 mg Clonazepam (Clonazepam 0.5 Mg Tablet) 0.5 mg PO TID RADHA Last Admin: 06/12/24 08:05 Dose: 0.5 mg Clonidine HCl (Clonidine Hcl 0.1 Mg Tablet) 0.1 mg PO BID [facility]HA; Protocol Last Admin: 06/12/24 08:05 Dose: 0.1 mg Clonidine HCl (Clonidine Hcl 0.1 Mg Tablet) 0.1 mg PO TID PRN; Protocol PRN Reason: anxiety Clotrimazole (Clotrimazole 1 % Cream 15 Gm Tube) 1 appl TOPICAL BID [facility]HA; Protocol Last Admin: 06/12/24 08:48 Dose: Not Given Divalproex Sodium (Divalproex Sodium Er 250 Mg Tab.Er.24h) 1,750 mg PO BEDTIME RADHA Last Admin: 06/11/24 20:42 Dose: 1,750 mg Hydroxyzine HCl (Hydroxyzine Hcl 25 Mg Tablet) 25 mg PO Q4H PRN PRN Reason: Anxiety Last Admin: 06/11/24 20:46 Dose: 25 mg Ibuprofen (Ibuprofen 800 Mg Tablet) 800 mg PO Q8H PRN PRN Reason: muscle pain Last Admin: 06/12/24 08:05 Dose: 800 mg Lidocaine (Lidocaine 4 % Patch Adh..Patch) 2 patch TRANSDERMA DAILY [facility]; Protocol Last Admin: 06/12/24 08:04 Dose: 2 patch Magnesium Hydroxide (Milk Of Magnesia 30 Ml Oral.Susp) 30 ml PO DAILY PRN PRN Reason: Constipation Last Admin: 06/12/24 08:07 Dose: 30 ml Melatonin (Melatonin 3 Mg Tablet) 6 mg PO BEDTIME PRN PRN Reason: Insomnia Last Admin: 06/11/24 20:47 Dose: 6 mg Methylphenidate HCl (Methylphenidate Hcl 10 Mg Tablet) 10 mg PO BID@0800,1800 [facility] Last Admin: 06/12/24 08:05 Dose: 10 mg Multi-Ingred Cream/Lotion/Oil/Oint (Mineral Oil/Petrolatum,White 106 Gm Tube) 1 appl TOPICAL TID [facility]; Protocol Last Admin: 06/12/24 08:48 Dose: Not Given Nicotine (Nicotine 21 Mg Patch.Td24) 21 mg TRANSDERMA DAILY [facility] Last Admin: 06/12/24 08:49 Dose: 21 mg Nicotine Polacrilex (Nicotine Polacrilex Lozenge 4 Mg Lozenge) 4 mg BUCCAL Q2H PRN PRN Reason: Nicotine Cravings Last Admin: 06/12/24 02:26 Dose: 4 mg Pt Own (Act Dry Mouth Gum 1 Piece Of Gum) 1 piece of gum PO TID PRN PRN Reason: dry mouth Olanzapine (Olanzapine Odt 10 Mg Tab.Rapdis) 10 mg TRANSLINGU BID PRN PRN Reason: agitation Last Admin: 06/11/24 10:44 Dose: 10 mg Simethicone (Simethicone 80 Mg Tab.Chew) 80 mg PO QIDWMHS RADHA Last Admin: 06/12/24 08:05 Dose: 80 mg Trazodone HCl (Trazodone Hcl 50 Mg Tablet) 50 mg PO BEDTIME MRX1 PRN PRN Reason: Insomnia Last Admin: 06/11/24 23:17 Dose: 50 mg Allergies Allergies Allergy/AdvReac Type Severity Reaction Status Date / Time No Known Allergies Allergy Verified 05/29/24 00:47 Assessment & Plan Assessment & Plan (1) ADHD: Status: Acute Code(s): F90.9 - Attention-deficit hyperactivity disorder, unspecified type (2) Bipolar 1 disorder: Status: Acute Code(s): F31.9 - Bipolar disorder, unspecified Plan 06/12/24: Continue regime Hospitalist consult Reason for continued inpatient stay Substantial Risk for: rapid decompensation Time Spent With Patient Time: Total time managing care of this patient today ____ minutes.
[2024-06-12] MEDS: OLANZapine ODT 10 MG TAB.RAPDIS TRANSLINGU ×2 (10:55→23:24)
[2024-06-12] MEDS: [UNRECOGNIZED DRUG - OTHER] 1 EACH PO ×3 (11:31→17:47)
[2024-06-12] MEDS: hydrOXYzine HCL 25 MG TABLET PO (12:39)
[2024-06-12] MEDS: Acetaminophen 325 MG TABLET 650 MG PO ×2 (13:25→21:53)
[2024-06-12] MEDS: cephALEXin 500 MG CAPSULE PO ×2 (14:53→21:51)
[2024-06-12] MEDS: bisacodyL 5 MG TABLET.DR 10 MG PO (17:05)
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
[2024-06-12 20:00] VITALS: BP 180/96; PULSE 135; TEMP 36.6; O2SAT 97
[2024-06-12 21:49] VITALS: BP 180/96
[2024-06-12] MEDS: Divalproex Sodium ER 250 MG TAB.ER.24H 1750 MG PO (21:49)
[2024-06-12] MEDS: oxyCODONE HCl Immed Release 5 MG TABLET PO (21:52)
[2024-06-12] MEDS: Clotrimazole 1 % Cream 15 GM TUBE 1 APPL TOPICAL (22:05)
[2024-06-12 22:10] VITALS: BP 139/84; PULSE 120; TEMP 36.9; O2SAT 97
[2024-06-12] MEDS: traZODone HCL 50 MG TABLET PO (23:24)
[2024-06-13] MEDS: hydrOXYzine HCL 25 MG TABLET PO ×2 (02:44→12:32)
[2024-06-13] MEDS: Ibuprofen 800 MG TABLET PO ×3 (02:45→21:52)
[2024-06-13 02:46] VITALS: BP 135/72
[2024-06-13] MEDS: cloNIDine HCL 0.1 MG TABLET PO ×4 (02:46→21:53)
[2024-06-13] MEDS: chlorproMAZINE HCl 100 MG TABLET PO ×3 (09:44→21:51)
[2024-06-13] MEDS: cephALEXin 500 MG CAPSULE PO ×3 (09:44→21:51)
[2024-06-13] MEDS: clonazePAM 0.5 MG TABLET PO ×3 (09:44→21:51)
[2024-06-13] MEDS: Simethicone 80 MG TAB.CHEW PO ×4 (09:44→21:50)
[2024-06-13] MEDS: Methylphenidate HCl 10 MG TABLET PO ×2 (09:44→17:01)
[2024-06-13] MEDS: oxyCODONE HCl Immed Release 5 MG TABLET PO (09:51)
[2024-06-13] MEDS: Acetaminophen 325 MG TABLET 650 MG PO (09:51)
[2024-06-13] MEDS: Nicotine 21 MG PATCH.TD24 TRANSDERMA (09:52)
[2024-06-13 10:12] VITALS: BP 137/76; PULSE 95; RESP 18; TEMP 36.2; O2SAT 96
--- NOTE | 2024-06-13 10:32 | HO.PSYCHPN ---
Subjective Subjective Date of Service: 06/13/24 Reason For Visit: biploar disorder, attention deificit/hyper act. Subjective Notes: Section 7 Interim History: Patient was seen and discussed in rounds today. Records and plans were reviewed. He is being followed by surgery for his hematoma. Eating and sleeping adequately. Some anxiety and irritability reported and continues to endorse depression. No SI. No behavioral issues. No changes were made today Review of Systems Review of Systems leg hematoma with increase in edema, redness HTN Mental Status Exam Mental Status Exam Narrative: In today's visit he is alert, oriented and pleasant. Normal speech. Moderate eye contact. Affect is constricted. No acute signs of psychosis. Cognitively is grossly intact. No SI. Judgment is intact Diagnostics Vital Signs (24Hr): Vital Signs - 24 hr 06/12/24 20:00 06/12/24 21:49 06/12/24 22:10 Temperature 97.9 F 98.4 F Pulse Rate 135 H 120 H Respiratory Rate Blood Pressure 180/96 H 180/96 H 139/84 Pulse Oximetry 97 97 Oxygen Delivery Method Room Air Room Air 06/13/24 02:46 06/13/24 10:12 Temperature 97.1 F Pulse Rate 95 Respiratory Rate 18 Blood Pressure 135/72 137/76 Pulse Oximetry 96 Oxygen Delivery Method Room Air BMI result Body Mass Index 41.7 Labs 06/10/24 07:46 06/10/24 07:46 Imaging Radiology Impressions: ITS Impressions Knee X-Ray 06/03/24 13:00 IMPRESSION: Unremarkable left knee. Electronically signed by: Paul Burr MD 06/04/2024 01:12 PM EST RP Knee X-Ray 06/03/24 13:00 IMPRESSION: Unremarkable right knee exam. Unchanged to previous study 05/30/2024. Electronically signed by: Paul Burr MD 06/04/2024 01:11 PM EST RP Brain MRI 06/03/24 17:35 IMPRESSION: No acute brain abnormality. Low position/ectopia cerebellar tonsils. Developmental venous anomaly, right frontoparietal region. Electronically signed by: Star Alan MD 06/04/2024 09:50 AM EST RP Femur CT 06/10/24 11:07 IMPRESSION: 1. No bony fractures. 2. Large subacute appearing hematoma anterior to the vastus musculature as described. No CT evidence suggestion of compartment syndrome. Electronically signed by: Salas Yo MD 06/10/2024 12:08 PM [facility] Medications Medications Current Medications Acetaminophen (Acetaminophen 325 Mg Tablet) 650 mg PO Q6H PRN PRN Reason: Headache/Pain Mild Scale (1-3) Last Admin: 06/13/24 09:51 Dose: 650 mg Al Hydroxide/Mg Hydroxide (Magnesium Hydrox/Alum Hydrox 30 Ml Oral.Susp) 30 ml PO Q6H PRN PRN Reason: Heartburn/Nausea Last Admin: 06/03/24 05:35 Dose: 30 ml Bisacodyl (Bisacodyl 5 Mg Tablet.Dr) 10 mg PO DAILY PRN PRN Reason: Constipation Last Admin: 06/12/24 17:05 Dose: 10 mg Cephalexin HCl (Cephalexin 500 Mg Capsule) 500 mg PO TID RADHA Stop: 06/20/24 09:00 Last Admin: 06/13/24 09:44 Dose: 500 mg Chlorpromazine HCl (Chlorpromazine Hcl 100 Mg Tablet) 100 mg PO TID PRN PRN Reason: psychosis,shanelle,agitation Last Admin: 06/12/24 23:24 Dose: 100 mg Chlorpromazine HCl (Chlorpromazine Hcl 100 Mg Tablet) 100 mg PO TID RADHA Last Admin: 06/13/24 09:44 Dose: 100 mg Clonazepam (Clonazepam 0.5 Mg Tablet) 0.5 mg PO TID RADHA Last Admin: 06/13/24 09:44 Dose: 0.5 mg Clonidine HCl (Clonidine Hcl 0.1 Mg Tablet) 0.1 mg PO BID [facility]; Protocol Last Admin: 06/13/24 09:44 Dose: 0.1 mg Clonidine HCl (Clonidine Hcl 0.1 Mg Tablet) 0.1 mg PO TID PRN; Protocol PRN Reason: anxiety Last Admin: 06/13/24 02:46 Dose: 0.1 mg Clotrimazole (Clotrimazole 1 % Cream 15 Gm Tube) 1 appl TOPICAL BID [facility]; Protocol Last Admin: 06/13/24 10:06 Dose: Not Given Divalproex Sodium (Divalproex Sodium Er 250 Mg Tab.Er.24h) 1,750 mg PO BEDTIME [facility] Last Admin: 06/12/24 21:49 Dose: 1,750 mg Hydroxyzine HCl (Hydroxyzine Hcl 25 Mg Tablet) 25 mg PO Q4H PRN PRN Reason: Anxiety Last Admin: 06/13/24 02:44 Dose: 25 mg Ibuprofen (Ibuprofen 800 Mg Tablet) 800 mg PO Q8H PRN PRN Reason: muscle pain Last Admin: 06/13/24 02:45 Dose: 800 mg Lidocaine (Lidocaine 4 % Patch Adh..Patch) 2 patch TRANSDERMA DAILY [facility]; Protocol Last Admin: 06/13/24 10:07 Dose: Not Given Magnesium Hydroxide (Milk Of Magnesia 30 Ml Oral.Susp) 30 ml PO DAILY PRN PRN Reason: Constipation Last Admin: 06/12/24 08:07 Dose: 30 ml Melatonin (Melatonin 3 Mg Tablet) 6 mg PO BEDTIME PRN PRN Reason: Insomnia Last Admin: 06/11/24 20:47 Dose: 6 mg Methylphenidate HCl (Methylphenidate Hcl 10 Mg Tablet) 10 mg PO BID@0800,1800 [facility] Last Admin: 06/13/24 09:44 Dose: 10 mg Multi-Ingred Cream/Lotion/Oil/Oint (Mineral Oil/Petrolatum,White 106 Gm Tube) 1 appl TOPICAL TID [facility]; Protocol Last Admin: 06/13/24 10:07 Dose: Not Given Nicotine (Nicotine 21 Mg Patch.Td24) 21 mg TRANSDERMA DAILY [facility] Last Admin: 06/13/24 09:52 Dose: 21 mg Nicotine Polacrilex (Nicotine Polacrilex Lozenge 4 Mg Lozenge) 4 mg BUCCAL Q2H PRN PRN Reason: Nicotine Cravings Last Admin: 06/12/24 19:08 Dose: 4 mg Pt Own (Act Dry Mouth Gum 1 Piece Of Gum) 1 piece of gum PO TID PRN PRN Reason: dry mouth Last Admin: 06/12/24 17:47 Dose: 1 piece of gum Olanzapine (Olanzapine Odt 10 Mg Tab.Rapdis) 10 mg TRANSLINGU BID PRN PRN Reason: agitation Last Admin: 06/12/24 23:24 Dose: 10 mg Simethicone (Simethicone 80 Mg Tab.Chew) 80 mg PO QIDWMHS [facility] Last Admin: 06/13/24 09:44 Dose: 80 mg Trazodone HCl (Trazodone Hcl 50 Mg Tablet) 50 mg PO BEDTIME MRX1 PRN PRN Reason: Insomnia Last Admin: 06/12/24 23:24 Dose: 50 mg Allergies Allergies Allergy/AdvReac Type Severity Reaction Status Date / Time No Known Allergies Allergy Verified 05/29/24 00:47 Assessment & Plan Assessment & Plan (1) ADHD: Status: Acute Code(s): F90.9 - Attention-deficit hyperactivity disorder, unspecified type (2) Bipolar 1 disorder: Status: Acute Code(s): F31.9 - Bipolar disorder, unspecified Plan 06/12/24: Continue regime Hospitalist consult 06/13/2024: Continue current regimen and plans Reason for continued inpatient stay Substantial Risk for: med/psych decompensation Time Spent With Patient Time: Total time managing care of this patient today ____ minutes.
[2024-06-13] MEDS: [UNRECOGNIZED DRUG - OTHER] 1 EACH PO ×2 (10:51→18:27)
[2024-06-13] MEDS: Nicotine Polacrilex Lozenge 4 MG LOZENGE BUCCAL ×2 (11:16→13:21)
[2024-06-13] MEDS: bisacodyL 5 MG TABLET.DR 10 MG PO (13:18)
[2024-06-13] MEDS: Milk of Magnesia 30 ML ORAL.SUSP PO (13:21)
[2024-06-13 18:26] VITALS: BP 138/81
[2024-06-13 20:00] VITALS: BP 143/92; PULSE 122; TEMP 37; O2SAT 95
[2024-06-13] MEDS: Divalproex Sodium ER 250 MG TAB.ER.24H 1750 MG PO (21:49)
[2024-06-13] MEDS: Melatonin 3 MG TABLET 6 MG PO (21:50)
[2024-06-13] MEDS: traZODone HCL 50 MG TABLET PO (21:52)
[2024-06-13 21:53] VITALS: BP 143/93
[2024-06-14] MEDS: chlorproMAZINE HCl 100 MG TABLET PO ×3 (08:15→22:04)
[2024-06-14] MEDS: Ibuprofen 800 MG TABLET PO ×2 (08:15→13:28)
[2024-06-14] MEDS: Methylphenidate HCl 10 MG TABLET PO ×2 (08:15→16:34)
[2024-06-14] MEDS: cloNIDine HCL 0.1 MG TABLET PO ×3 (08:15→22:04)
[2024-06-14] MEDS: cephALEXin 500 MG CAPSULE PO ×3 (08:15→22:04)
[2024-06-14] MEDS: Simethicone 80 MG TAB.CHEW PO ×4 (08:16→22:03)
[2024-06-14] MEDS: clonazePAM 0.5 MG TABLET PO ×3 (08:16→22:03)
[2024-06-14] MEDS: Lidocaine 4 % Patch ADH..PATCH 2 PATCH TRANSDERMA (08:16)
[2024-06-14] MEDS: Nicotine 21 MG PATCH.TD24 TRANSDERMA (08:18)
[2024-06-14 08:45] VITALS: BP 152/75; PULSE 103; RESP 18; TEMP 36.4; O2SAT 98
[2024-06-14] MEDS: oxyCODONE HCl Immed Release 5 MG TABLET PO ×4 (09:03→22:04)
[2024-06-14] MEDS: Acetaminophen 325 MG TABLET 650 MG PO ×2 (09:03→17:04)
--- NOTE | 2024-06-14 10:33 | HO.PSYCHPN ---
Subjective Subjective Date of Service: 06/14/24 Reason For Visit: biploar disorder, attention deificit/hyper act. Subjective Notes: Section 7 Interim History: Patient was seen and discussed in rounds today. Records and plans were reviewed. He is being followed by surgery for his hematoma/seratoma. He is very uncomfortable and is requesting some pain medication. I ordered his oxycodone 5 mg q.4 hours for 24 hours. He is understanding of its addictive nature and is going to try to use it as little as possible. No SI. Some pacing because of the discomfort. No AVH. No other changes were made today Review of Systems Review of Systems Right very large swelling of upper leg Yes all other systems are reviewed and are negative Mental Status Exam Mental Status Exam Narrative: In today's visit he is alert, oriented and pleasant. Normal speech. Moderate eye contact. Affect is constricted. No acute signs of psychosis. Cognitively is grossly intact. No SI. Judgment is intact Diagnostics Vital Signs (24Hr): Vital Signs - 24 hr 06/13/24 18:26 06/13/24 20:00 06/13/24 21:53 Temperature 98.6 F Pulse Rate 122 H Respiratory Rate Blood Pressure 138/81 143/92 H 143/93 H Pulse Oximetry 95 Oxygen Delivery Method Room Air 06/14/24 08:45 Temperature 97.5 F Pulse Rate 103 H Respiratory Rate 18 Blood Pressure 152/75 H Pulse Oximetry 98 Oxygen Delivery Method Room Air BMI result Body Mass Index 41.7 Labs 06/10/24 07:46 06/10/24 07:46 Imaging Radiology Impressions: ITS Impressions Knee X-Ray 06/03/24 13:00 IMPRESSION: Unremarkable left knee. Electronically signed by: Paul Burr MD 06/04/2024 01:12 PM EST RP Knee X-Ray 06/03/24 13:00 IMPRESSION: Unremarkable right knee exam. Unchanged to previous study 05/30/2024. Electronically signed by: Paul Burr MD 06/04/2024 01:11 PM EST RP Brain MRI 06/03/24 17:35 IMPRESSION: No acute brain abnormality. Low position/ectopia cerebellar tonsils. Developmental venous anomaly, right frontoparietal region. Electronically signed by: Star Alan MD 06/04/2024 09:50 AM EST RP Femur CT 06/10/24 11:07 IMPRESSION: 1. No bony fractures. 2. Large subacute appearing hematoma anterior to the vastus musculature as described. No CT evidence suggestion of compartment syndrome. Electronically signed by: Salas Yo MD 06/10/2024 12:08 PM EST RP Medications Medications Current Medications Acetaminophen (Acetaminophen 325 Mg Tablet) 650 mg PO Q6H PRN PRN Reason: Headache/Pain Mild Scale (1-3) Last Admin: 06/14/24 09:03 Dose: 650 mg Al Hydroxide/Mg Hydroxide (Magnesium Hydrox/Alum Hydrox 30 Ml Oral.Susp) 30 ml PO Q6H PRN PRN Reason: Heartburn/Nausea Last Admin: 06/03/24 05:35 Dose: 30 ml Bisacodyl (Bisacodyl 5 Mg Tablet.Dr) 10 mg PO DAILY PRN PRN Reason: Constipation Last Admin: 06/13/24 13:18 Dose: 10 mg Cephalexin HCl (Cephalexin 500 Mg Capsule) 500 mg PO TID RADHA Stop: 06/20/24 09:00 Last Admin: 06/14/24 08:15 Dose: 500 mg Chlorpromazine HCl (Chlorpromazine Hcl 100 Mg Tablet) 100 mg PO TID PRN PRN Reason: psychosis,shanelle,agitation Last Admin: 06/12/24 23:24 Dose: 100 mg Chlorpromazine HCl (Chlorpromazine Hcl 100 Mg Tablet) 100 mg PO TID RADHA Last Admin: 06/14/24 08:15 Dose: 100 mg Clonazepam (Clonazepam 0.5 Mg Tablet) 0.5 mg PO TID RADHA Last Admin: 06/14/24 08:16 Dose: 0.5 mg Clonidine HCl (Clonidine Hcl 0.1 Mg Tablet) 0.1 mg PO BID [facility]; Protocol Last Admin: 06/14/24 08:15 Dose: 0.1 mg Clonidine HCl (Clonidine Hcl 0.1 Mg Tablet) 0.1 mg PO TID PRN; Protocol PRN Reason: anxiety Last Admin: 06/13/24 18:26 Dose: 0.1 mg Clotrimazole (Clotrimazole 1 % Cream 15 Gm Tube) 1 appl TOPICAL BID [facility]; Protocol Last Admin: 06/14/24 08:23 Dose: Not Given Divalproex Sodium (Divalproex Sodium Er 250 Mg Tab.Er.24h) 1,750 mg PO BEDTIME RADHA Last Admin: 06/13/24 21:49 Dose: 1,750 mg Hydroxyzine HCl (Hydroxyzine Hcl 25 Mg Tablet) 25 mg PO Q4H PRN PRN Reason: Anxiety Last Admin: 06/13/24 12:32 Dose: 25 mg Ibuprofen (Ibuprofen 800 Mg Tablet) 800 mg PO Q8H PRN PRN Reason: muscle pain Last Admin: 06/14/24 08:15 Dose: 800 mg Lidocaine (Lidocaine 4 % Patch Adh..Patch) 2 patch TRANSDERMA DAILY [facility]; Protocol Last Admin: 06/14/24 08:16 Dose: 2 patch Magnesium Hydroxide (Milk Of Magnesia 30 Ml Oral.Susp) 30 ml PO DAILY PRN PRN Reason: Constipation Last Admin: 06/13/24 13:21 Dose: 30 ml Melatonin (Melatonin 3 Mg Tablet) 6 mg PO BEDTIME PRN PRN Reason: Insomnia Last Admin: 06/13/24 21:50 Dose: 6 mg Methylphenidate HCl (Methylphenidate Hcl 10 Mg Tablet) 10 mg PO BID@0800,1800 [facility] Last Admin: 06/14/24 08:15 Dose: 10 mg Multi-Ingred Cream/Lotion/Oil/Oint (Mineral Oil/Petrolatum,White 106 Gm Tube) 1 appl TOPICAL TID [facility]; Protocol Last Admin: 06/14/24 08:24 Dose: Not Given Nicotine (Nicotine 21 Mg Patch.Td24) 21 mg TRANSDERMA DAILY [facility] Last Admin: 06/14/24 08:18 Dose: 21 mg Nicotine Polacrilex (Nicotine Polacrilex Lozenge 4 Mg Lozenge) 4 mg BUCCAL Q2H PRN PRN Reason: Nicotine Cravings Last Admin: 06/13/24 13:21 Dose: 4 mg Pt Own (Act Dry Mouth Gum 1 Piece Of Gum) 1 piece of gum PO TID PRN PRN Reason: dry mouth Last Admin: 06/13/24 18:27 Dose: 1 piece of gum Olanzapine (Olanzapine Odt 10 Mg Tab.Rapdis) 10 mg TRANSLINGU BID PRN PRN Reason: agitation Last Admin: 06/12/24 23:24 Dose: 10 mg Oxycodone HCl (Oxycodone Hcl Immed Release 5 Mg Tablet) 5 mg PO Q4H PRN PRN Reason: Pain, Moderate(Pain Scale 4-6) Stop: 06/15/24 08:47 Last Admin: 06/14/24 09:03 Dose: 5 mg Simethicone (Simethicone 80 Mg Tab.Chew) 80 mg PO QIDWMHS RADHA Last Admin: 06/14/24 08:16 Dose: 80 mg Trazodone HCl (Trazodone Hcl 50 Mg Tablet) 50 mg PO BEDTIME MRX1 PRN PRN Reason: Insomnia Last Admin: 06/13/24 21:52 Dose: 50 mg Allergies Allergies Allergy/AdvReac Type Severity Reaction Status Date / Time No Known Allergies Allergy Verified 05/29/24 00:47 Assessment & Plan Assessment & Plan (1) ADHD: Status: Acute Code(s): F90.9 - Attention-deficit hyperactivity disorder, unspecified type (2) Bipolar 1 disorder: Status: Acute Code(s): F31.9 - Bipolar disorder, unspecified Plan 06/12/24: Continue regime Hospitalist consult 06/13/2024: Continue current regimen and plans 06/14/2024: Continue current regimen and plans. Oxycodone for 24 hours ordered Patient educated on: medication risk/benefits Reason for continued inpatient stay Substantial Risk for: med/psych decompensation Time Spent With Patient Time: Total time managing care of this patient today ____ minutes.
[2024-06-14] MEDS: [UNRECOGNIZED DRUG - OTHER] 1 EACH PO (10:40)
[2024-06-14] MEDS: Nicotine Polacrilex Lozenge 4 MG LOZENGE BUCCAL ×3 (10:42→21:15)
[2024-06-14 11:24] VITALS: BP 136/83
[2024-06-14] MEDS: hydrOXYzine HCL 25 MG TABLET PO (11:24)
--- NOTE | 2024-06-14 14:20 | PC.NURSE ---
Juan Carlos's right thigh noted to be larger than last assessed and continues to be reddened and painful. Photo taken and compared to photo from two days ago. Hospitalist notified, who directed TW to contact general surgeon. Reported findings and shared photo w/ Brian Raymond MD, who instructed to contact Dr An tomorrow for follow-up & possible intervention.
[2024-06-14] MEDS: Milk of Magnesia 30 ML ORAL.SUSP PO (16:34)
[2024-06-14] MEDS: Mineral Oil/Petrolatum,White 106 GM Tube 1 APPL TOPICAL ×2 (17:05→21:56)
[2024-06-14 20:00] VITALS: BP 152/97; PULSE 116; RESP 18; TEMP 36; O2SAT 98
[2024-06-14] MEDS: Divalproex Sodium ER 250 MG TAB.ER.24H 1750 MG PO (22:03)
[2024-06-14 22:04] VITALS: BP 164/94
[2024-06-15 01:08] VITALS: BP 143/85
[2024-06-15] MEDS: cloNIDine HCL 0.1 MG TABLET PO ×4 (01:08→21:31)
[2024-06-15] MEDS: hydrOXYzine HCL 25 MG TABLET PO ×2 (01:08→13:47)
[2024-06-15] MEDS: Acetaminophen 325 MG TABLET 650 MG PO ×2 (01:11→12:30)
[2024-06-15] MEDS: Ibuprofen 800 MG TABLET PO ×3 (01:12→18:49)
[2024-06-15] MEDS: oxyCODONE HCl Immed Release 5 MG TABLET PO (02:07)
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
[2024-06-15 09:00] VITALS: PULSE 107; RESP 18; TEMP 36.4; O2SAT 97
[2024-06-15] MEDS: Clotrimazole 1 % Cream 15 GM TUBE 1 APPL TOPICAL (09:25)
[2024-06-15] MEDS: chlorproMAZINE HCl 100 MG TABLET PO ×3 (09:25→21:31)
[2024-06-15] MEDS: Methylphenidate HCl 10 MG TABLET PO ×2 (09:26→17:03)
[2024-06-15] MEDS: cephALEXin 500 MG CAPSULE PO ×3 (09:26→21:31)
[2024-06-15] MEDS: clonazePAM 0.5 MG TABLET PO ×3 (09:26→21:31)
[2024-06-15] MEDS: Nicotine 21 MG PATCH.TD24 TRANSDERMA (09:27)
[2024-06-15] MEDS: Simethicone 80 MG TAB.CHEW PO ×3 (09:27→21:31)
[2024-06-15] MEDS: Nicotine Polacrilex Lozenge 4 MG LOZENGE BUCCAL (09:27)
[2024-06-15 09:28] VITALS: BP 153/71
[2024-06-15] MEDS: [UNRECOGNIZED DRUG - OTHER] 1 EACH PO (11:52)
[2024-06-15] MEDS: Nicotine Polacrilex 2 MG GUM 4 MG BUCCAL ×3 (12:05→18:48)
--- NOTE | 2024-06-15 13:15 | P.PNPSI_ITS ---
Subjective Subjective Date of Service: 06/15/24 Reason For Visit: biploar disorder, attention deificit/hyper act. Subjective Notes: Section 7 Healthcare Proxy: No Guardianship: No Medical Problems Affecting Mental Status: No Interim History: Continues to improve. Alert, non psychotic, marked decrease in lability, continues challenging and demanding. Making discharge plans. Pressing for a date. We have told him we will try for mid week, depending upon surgical consult outcome. Thigh continues with edema-surgery consult ordered Discussed what his plans are- to go to [facility] via [employer]/Lyft/Father, cousin Will ask [facility] if pt's meds can have bubble packing for correct dosing- [phone]-they report they will be able to bubble pack meds for pt to take appropriate dosages. Medication Compliance: Yes Side effects from medications: No Attending Groups: Intermittent Review of Systems seroma-thigh Review of Systems Review of Systems thigh seroma Mental Status Exam Mental Status Exam Patient Appearance: Appropriate Patient Orientation: Person, Place, Time and Situation Level of Consciousness: Alert Patient Behavior: Appropriate, Talkative, Cooperative and Good Eye Contact Mood Description: Constricted Affect Description: Constricted Patient Cognition Impaired: No Ability to Follow Directions: Good Speech Pattern: Spontaneous Speech Memory Description: Intact Hallucinations: None Delusions: Not Present Thought Process: Goal Oriented Thought Content: positive for [place], positive for Circumstantial and positive for Goal Oriented Judgement: Good Diagnostics Vital Signs (24Hr): Vital Signs - 24 hr 06/14/24 20:00 06/14/24 22:04 06/15/24 01:08 Temperature 96.8 F Pulse Rate 116 H Respiratory Rate 18 Blood Pressure 152/97 H 164/94 H 143/85 H Pulse Oximetry 98 Oxygen Delivery Method Room Air 06/15/24 09:00 06/15/24 09:28 Temperature 97.5 F Pulse Rate 107 H Respiratory Rate 18 Blood Pressure 153/71 H Pulse Oximetry 97 Oxygen Delivery Method Room Air BMI result Body Mass Index 41.7 Labs 06/10/24 07:46 06/10/24 07:46 Imaging Radiology Impressions: ITS Impressions Knee X-Ray 06/03/24 13:00 IMPRESSION: Unremarkable left knee. Electronically signed by: Paul Burr MD 06/04/2024 01:12 PM [facility] Knee X-Ray 06/03/24 13:00 IMPRESSION: Unremarkable right knee exam. Unchanged to previous study 05/30/2024. Electronically signed by: Paul Burr MD 06/04/2024 01:11 PM EST RP Brain MRI 06/03/24 17:35 IMPRESSION: No acute brain abnormality. Low position/ectopia cerebellar tonsils. Developmental venous anomaly, right frontoparietal region. Electronically signed by: Star Alan MD 06/04/2024 09:50 AM EST RP Femur CT 06/10/24 11:07 IMPRESSION: 1. No bony fractures. 2. Large subacute appearing hematoma anterior to the vastus musculature as described. No CT evidence suggestion of compartment syndrome. Electronically signed by: Salas Yo MD 06/10/2024 12:08 PM EST RP Medications Medications Current Medications Acetaminophen (Acetaminophen 325 Mg Tablet) 650 mg PO Q6H PRN PRN Reason: Headache/Pain Mild Scale (1-3) Last Admin: 06/15/24 12:30 Dose: 650 mg Al Hydroxide/Mg Hydroxide (Magnesium Hydrox/Alum Hydrox 30 Ml Oral.Susp) 30 ml PO Q6H PRN PRN Reason: Heartburn/Nausea Last Admin: 06/03/24 05:35 Dose: 30 ml Bisacodyl (Bisacodyl 5 Mg Tablet.Dr) 10 mg PO DAILY PRN PRN Reason: Constipation Last Admin: 06/13/24 13:18 Dose: 10 mg Cephalexin HCl (Cephalexin 500 Mg Capsule) 500 mg PO TID RADHA Stop: 06/20/24 09:00 Last Admin: 06/15/24 09:26 Dose: 500 mg Chlorpromazine HCl (Chlorpromazine Hcl 100 Mg Tablet) 100 mg PO TID PRN PRN Reason: psychosis,shanelle,agitation Last Admin: 06/12/24 23:24 Dose: 100 mg Chlorpromazine HCl (Chlorpromazine Hcl 100 Mg Tablet) 100 mg PO TID RADHA Last Admin: 06/15/24 09:25 Dose: 100 mg Clonazepam (Clonazepam 0.5 Mg Tablet) 0.5 mg PO TID RADHA Last Admin: 06/15/24 09:26 Dose: 0.5 mg Clonidine HCl (Clonidine Hcl 0.1 Mg Tablet) 0.1 mg PO BID [facility]; Protocol Last Admin: 06/15/24 09:28 Dose: 0.1 mg Clonidine HCl (Clonidine Hcl 0.1 Mg Tablet) 0.1 mg PO TID PRN; Protocol PRN Reason: anxiety Last Admin: 06/15/24 01:08 Dose: 0.1 mg Clotrimazole (Clotrimazole 1 % Cream 15 Gm Tube) 1 appl TOPICAL BID RADHA; Protocol Last Admin: 06/15/24 09:25 Dose: 1 appl Divalproex Sodium (Divalproex Sodium Er 250 Mg Tab.Er.24h) 1,750 mg PO BEDTIME RADHA Last Admin: 06/14/24 22:03 Dose: 1,750 mg Hydroxyzine HCl (Hydroxyzine Hcl 25 Mg Tablet) 25 mg PO Q4H PRN PRN Reason: Anxiety Last Admin: 06/15/24 01:08 Dose: 25 mg Ibuprofen (Ibuprofen 800 Mg Tablet) 800 mg PO Q8H PRN PRN Reason: muscle pain Last Admin: 06/15/24 10:33 Dose: 800 mg Lidocaine (Lidocaine 4 % Patch Adh..Patch) 2 patch TRANSDERMA DAILY [facility]; Protocol Last Admin: 06/15/24 09:43 Dose: Not Given Magnesium Hydroxide (Milk Of Magnesia 30 Ml Oral.Susp) 30 ml PO DAILY PRN PRN Reason: Constipation Last Admin: 06/14/24 16:34 Dose: 30 ml Melatonin (Melatonin 3 Mg Tablet) 6 mg PO BEDTIME PRN PRN Reason: Insomnia Last Admin: 06/13/24 21:50 Dose: 6 mg Methylphenidate HCl (Methylphenidate Hcl 10 Mg Tablet) 10 mg PO BID@0800,1800 [facility] Last Admin: 06/15/24 09:26 Dose: 10 mg Multi-Ingred Cream/Lotion/Oil/Oint (Mineral Oil/Petrolatum,White 106 Gm Tube) 1 appl TOPICAL TID [facility]; Protocol Last Admin: 06/15/24 09:42 Dose: Not Given Nicotine (Nicotine 21 Mg Patch.Td24) 21 mg TRANSDERMA DAILY [facility] Last Admin: 06/15/24 09:27 Dose: 21 mg Nicotine Polacrilex (Nicotine Polacrilex 2 Mg Gum) 4 mg BUCCAL Q2H PRN PRN Reason: Nicotine Cravings Last Admin: 06/15/24 12:05 Dose: 4 mg Pt Own (Act Dry Mouth Gum 1 Piece Of Gum) 1 piece of gum PO TID PRN PRN Reason: dry mouth Last Admin: 06/15/24 11:52 Dose: 1 piece of gum Olanzapine (Olanzapine Odt 10 Mg Tab.Rapdis) 10 mg TRANSLINGU BID PRN PRN Reason: agitation Last Admin: 06/12/24 23:24 Dose: 10 mg Simethicone (Simethicone 80 Mg Tab.Chew) 80 mg PO QIDWMHS RADHA Last Admin: 06/15/24 12:05 Dose: Not Given Trazodone HCl (Trazodone Hcl 50 Mg Tablet) 50 mg PO BEDTIME MRX1 PRN PRN Reason: Insomnia Last Admin: 06/13/24 21:52 Dose: 50 mg Allergies Allergies Allergy/AdvReac Type Severity Reaction Status Date / Time No Known Allergies Allergy Verified 05/29/24 00:47 Assessment & Plan Assessment & Plan (1) ADHD: Status: Acute Code(s): F90.9 - Attention-deficit hyperactivity disorder, unspecified type (2) Bipolar 1 disorder: Status: Acute Code(s): F31.9 - Bipolar disorder, unspecified Plan 06/12/24: Continue regime Hospitalist consult 06/13/2024: Continue current regimen and plans 06/14/2024: Continue current regimen and plans. Oxycodone for 24 hours ordered 06/15/2024: Continue current regime and care plan. Surgical consult ordered. Reason for continued inpatient stay Substantial Risk for: rapid decompensation and med/psych decompensation Time Spent With Patient Time: Total time managing care of this patient today ____ minutes.
[2024-06-15 13:47] VITALS: BP 144/66
--- NOTE | 2024-06-15 18:02 | PM.EVENT ---
Event Note Date of Service: 06/17/24 Event Note: I called because of reaccumulation of seroma on the right thigh Otherwise no new complaints The patient states that he would like this to be reaspirated Aspiration done at bedside with a gauge 18 needle Note of about 600 cc of clear serous fluid aspirated, nonbloody He tolerated procedure well Anticipate reaccumulation because of the presence of the hematoma, posttraumatic from his recent accident Ideally, we wrapped the thigh with a wide Lorenzo bandage but in view of him being in the psych unit, this may not be appropriate Time Spent With Patient Time: Total time managing care of this patient today ____ minutes.
--- NOTE | 2024-06-15 18:04 | PM.PROC ---
Brief Operative Note Date of procedure: 06/15/24 Pre-op diagnosis: Large seroma right anterior thigh Procedure: He was in supine position. An area of the seroma on the anteromedial aspect of the right thigh was prepped and draped. Lidocaine 1% was used for local anesthesia. I used a gauge 18 needle to enter the seroma cavity. About 600 cc of clear serous fluid was aspirated, nonbloody. He tolerated procedure well. There were no immediate complications. Dressings were applied.
[2024-06-15 18:25] VITALS: BP 129/71; PULSE 99; RESP 18; TEMP 37; O2SAT 99
[2024-06-15 20:00] VITALS: BP 148/82; PULSE 107; TEMP 37.1; O2SAT 97
[2024-06-15] MEDS: Divalproex Sodium ER 250 MG TAB.ER.24H 1750 MG PO (21:30)
--- NOTE | 2024-06-15 21:41 | PC.NURSE ---
WOUND CHECK. Pt reported my puncture wound is leaking Pt had needle aspiration procedure during previous shift, punctum noted, minimal serous drainage noted. ABD pad applied to area at this time.
[2024-06-16] MEDS: Nicotine Polacrilex 2 MG GUM 4 MG BUCCAL ×3 (08:30→18:16)
[2024-06-16 08:31] VITALS: BP 112/78; PULSE 101; TEMP 36.4; O2SAT 99
[2024-06-16] MEDS: Simethicone 80 MG TAB.CHEW PO ×3 (08:31→21:27)
[2024-06-16] MEDS: cephALEXin 500 MG CAPSULE PO ×3 (08:31→21:27)
[2024-06-16] MEDS: cloNIDine HCL 0.1 MG TABLET PO ×3 (08:31→21:28)
[2024-06-16] MEDS: clonazePAM 0.5 MG TABLET PO ×3 (08:31→21:27)
[2024-06-16] MEDS: chlorproMAZINE HCl 100 MG TABLET PO ×3 (08:31→21:27)
[2024-06-16] MEDS: Methylphenidate HCl 10 MG TABLET PO (08:31)
[2024-06-16] MEDS: Clotrimazole 1 % Cream 15 GM TUBE 1 APPL TOPICAL (08:32)
[2024-06-16] MEDS: Nicotine 21 MG PATCH.TD24 TRANSDERMA (08:32)
[2024-06-16] MEDS: Mineral Oil/Petrolatum,White 106 GM Tube 1 APPL TOPICAL ×2 (08:32→21:31)
[2024-06-16] MEDS: Lidocaine 4 % Patch ADH..PATCH 2 PATCH TRANSDERMA (08:33)
[2024-06-16] MEDS: Ibuprofen 800 MG TABLET PO ×2 (08:57→16:07)
[2024-06-16] MEDS: Acetaminophen 325 MG TABLET 650 MG PO (09:45)
--- NOTE | 2024-06-16 10:30 | P.PNPSI_ITS ---
Subjective Subjective Date of Service: 06/16/24 Reason For Visit: biploar disorder, attention deificit/hyper act. Subjective Notes: Section 7 Interim History: Pt slept through the night. He declined thorazine yesterday at around 3pm but took thorazine at bedtime and this morning. Pt reports he has been unfairly admitted against his will to the psychiatric unit, he reports he is taking notes of all the things that are going on here... mainly unjustified psychiatric admission to charge patients' health insurance. He makes vague reports of harm from hospital to patients and how he will present all this information in court and thinks hospital will be shut down for at least one months. He reports he has a big legal team. In terms of his right thigh seroma- he was seen by Dr. An on 06/15/24 from general surgery and he aspirated 600cc. Per Dr. An- pt needs 6-8 leander bandage to decrease accumulation of seroma, but recommendation is that he follows up with general surgery for periodic aspiration. Currently, no other acute intervention is needed. When asked Juan Carlos about his understanding of what he needs to do for seroma, he reports that he will find his own doctor as he does not think Dr. An and him are a good match... he also reports if any complications occur such as pain or re-accumulation of fluid, he could go to the ED if needed. He demands this inspector automatic typewriter discharge him by tomorrow and that his plan is to go to court to liam the hospital for keeping him unnecessarily on a psychiatric unit. Review of Systems Review of Systems thigh seroma Yes all other systems are reviewed and are negative and Unobtainable due to mental status Constitutional: Reports as per HPI, Denies body ache(s), Denies chills, Denies fever(s) and Denies headache(s) Eyes: Reports as per HPI Reports as per HPI and Denies headache(s) Cardiovascular: Reports as per HPI, Denies chest pain, Denies syncope, Denies rapid heart rate, Denies leg edema and Denies dyspnea Respiratory: Reports as per HPI, Denies cough and Denies dyspnea Gastrointestinal: Reports as per HPI, Denies abdominal pain, Denies nausea and Denies vomiting Genitourinary: Reports as per HPI and Denies difficulty urinating Musculoskeletal: Reports as per HPI Skin/Breast: Reports as per HPI Reports as per HPI, Denies syncope and Denies headache(s) Psychiatric: Reports as per HPI, Reports anxiety and Reports depression Endocrine: Reports as per HPI Hematologic/Lymphatic: Reports as per HPI, Denies easy bleeding and Denies easy bruising Allergic/Immunologic: Reports as per HPI Mental Status Exam Mental Status Exam Patient Appearance: Appropriate Patient Orientation: Person and Place Level of Consciousness: Alert Patient Behavior: Suspicious (guarded, suspicious) Mood Description: Constricted (somewhat irritable) Affect Description: Constricted Patient Cognition Impaired: No Ability to Follow Directions: Good Speech Pattern: Spontaneous Speech Memory Description: Intact Delusions: Paranoid Ideation (thinking hospital is harming him and other pts) Thought Process: Goal Oriented (being discharged from the hospital) Judgement: Poor Judgement and Insight: very limited insight and judgment about his mental illness and need for treatment. Diagnostics Vital Signs (24Hr): Vital Signs - 24 hr 06/15/24 13:47 06/15/24 18:25 06/15/24 20:00 Temperature 98.6 F 98.7 F Pulse Rate 99 107 H Respiratory Rate 18 Blood Pressure 144/66 H 129/71 148/82 H Pulse Oximetry 99 97 Oxygen Delivery Method Room Air Room Air 06/16/24 08:31 06/16/24 08:31 Temperature 97.6 F Pulse Rate 101 H Respiratory Rate Blood Pressure 112/78 112/78 Pulse Oximetry 99 Oxygen Delivery Method Room Air BMI result Body Mass Index 41.7 Labs 06/10/24 07:46 06/10/24 07:46 Imaging Radiology Impressions: ITS Impressions Knee X-Ray 06/03/24 13:00 IMPRESSION: Unremarkable left knee. Electronically signed by: Paul Burr MD 06/04/2024 01:12 PM EST RP Knee X-Ray 06/03/24 13:00 IMPRESSION: Unremarkable right knee exam. Unchanged to previous study 05/30/2024. Electronically signed by: Paul Burr MD 06/04/2024 01:11 PM EST RP Brain MRI 06/03/24 17:35 IMPRESSION: No acute brain abnormality. Low position/ectopia cerebellar tonsils. Developmental venous anomaly, right frontoparietal region. Electronically signed by: Star Alan MD 06/04/2024 09:50 AM EST RP Femur CT 06/10/24 11:07 IMPRESSION: 1. No bony fractures. 2. Large subacute appearing hematoma anterior to the vastus musculature as described. No CT evidence suggestion of compartment syndrome. Electronically signed by: Salas Yo MD 06/10/2024 12:08 PM EST RP Medications Medications Current Medications Acetaminophen (Acetaminophen 325 Mg Tablet) 650 mg PO Q6H PRN PRN Reason: Headache/Pain Mild Scale (1-3) Last Admin: 06/16/24 09:45 Dose: 650 mg Al Hydroxide/Mg Hydroxide (Magnesium Hydrox/Alum Hydrox 30 Ml Oral.Susp) 30 ml PO Q6H PRN PRN Reason: Heartburn/Nausea Last Admin: 06/03/24 05:35 Dose: 30 ml Bisacodyl (Bisacodyl 5 Mg Tablet.Dr) 10 mg PO DAILY PRN PRN Reason: Constipation Last Admin: 06/13/24 13:18 Dose: 10 mg Cephalexin HCl (Cephalexin 500 Mg Capsule) 500 mg PO TID RADHA Stop: 06/20/24 09:00 Last Admin: 06/16/24 08:31 Dose: 500 mg Chlorpromazine HCl (Chlorpromazine Hcl 100 Mg Tablet) 100 mg PO TID PRN PRN Reason: psychosis,shanelle,agitation Last Admin: 06/15/24 16:23 Dose: 100 mg Chlorpromazine HCl (Chlorpromazine Hcl 100 Mg Tablet) 100 mg PO TID RADHA Last Admin: 06/16/24 08:31 Dose: 100 mg Clonazepam (Clonazepam 0.5 Mg Tablet) 0.5 mg PO TID RADHA Last Admin: 06/16/24 08:31 Dose: 0.5 mg Clonidine HCl (Clonidine Hcl 0.1 Mg Tablet) 0.1 mg PO BID RADHA; Protocol Last Admin: 06/16/24 08:31 Dose: 0.1 mg Clonidine HCl (Clonidine Hcl 0.1 Mg Tablet) 0.1 mg PO TID PRN; Protocol PRN Reason: anxiety Last Admin: 06/15/24 13:47 Dose: 0.1 mg Clotrimazole (Clotrimazole 1 % Cream 15 Gm Tube) 1 appl TOPICAL BID RADHA; Protocol Last Admin: 06/16/24 08:32 Dose: 1 appl Divalproex Sodium (Divalproex Sodium Er 250 Mg Tab.Er.24h) 1,750 mg PO BEDTIME RADHA Last Admin: 06/15/24 21:30 Dose: 1,750 mg Hydroxyzine HCl (Hydroxyzine Hcl 25 Mg Tablet) 25 mg PO Q4H PRN PRN Reason: Anxiety Last Admin: 06/15/24 13:47 Dose: 25 mg Ibuprofen (Ibuprofen 800 Mg Tablet) 800 mg PO Q8H PRN PRN Reason: muscle pain Last Admin: 06/16/24 08:57 Dose: 800 mg Lidocaine (Lidocaine 4 % Patch Adh..Patch) 2 patch TRANSDERMA DAILY [facility]; Protocol Last Admin: 06/16/24 08:33 Dose: 2 patch Magnesium Hydroxide (Milk Of Magnesia 30 Ml Oral.Susp) 30 ml PO DAILY PRN PRN Reason: Constipation Last Admin: 06/14/24 16:34 Dose: 30 ml Melatonin (Melatonin 3 Mg Tablet) 6 mg PO BEDTIME PRN PRN Reason: Insomnia Last Admin: 06/13/24 21:50 Dose: 6 mg Methylphenidate HCl (Methylphenidate Hcl 10 Mg Tablet) 10 mg PO BID@0800,1800 [facility] Last Admin: 06/16/24 08:31 Dose: 10 mg Multi-Ingred Cream/Lotion/Oil/Oint (Mineral Oil/Petrolatum,White 106 Gm Tube) 1 appl TOPICAL TID [facility]; Protocol Last Admin: 06/16/24 08:32 Dose: 1 appl Nicotine (Nicotine 21 Mg Patch.Td24) 21 mg TRANSDERMA DAILY [facility] Last Admin: 06/16/24 08:32 Dose: 21 mg Nicotine Polacrilex (Nicotine Polacrilex 2 Mg Gum) 4 mg BUCCAL Q2H PRN PRN Reason: Nicotine Cravings Last Admin: 06/16/24 08:30 Dose: 4 mg Pt Own (Act Dry Mouth Gum 1 Piece Of Gum) 1 piece of gum PO TID PRN PRN Reason: dry mouth Last Admin: 06/15/24 11:52 Dose: 1 piece of gum Olanzapine (Olanzapine Odt 10 Mg Tab.Rapdis) 10 mg TRANSLINGU BID PRN PRN Reason: agitation Last Admin: 06/12/24 23:24 Dose: 10 mg Simethicone (Simethicone 80 Mg Tab.Chew) 80 mg PO QIDWMHS RADHA Last Admin: 06/16/24 08:31 Dose: 80 mg Trazodone HCl (Trazodone Hcl 50 Mg Tablet) 50 mg PO BEDTIME MRX1 PRN PRN Reason: Insomnia Last Admin: 06/13/24 21:52 Dose: 50 mg Allergies Allergies Allergy/AdvReac Type Severity Reaction Status Date / Time No Known Allergies Allergy Verified 05/29/24 00:47 Assessment & Plan Assessment & Plan (1) Bipolar 1 disorder: Status: Acute Code(s): F31.9 - Bipolar disorder, unspecified (2) ADHD: Status: Acute Code(s): F90.9 - Attention-deficit hyperactivity disorder, unspecified type Plan 06/12/24: Continue regime Hospitalist consult 06/13/2024: Continue current regimen and plans 06/14/2024: Continue current regimen and plans. Oxycodone for 24 hours ordered 06/15/2024: Continue current regime and care plan. Surgical consult ordered. 06/16 methylphenidate may be exacerbating delusions and psychosis. Continues to present with paranoid delusions of hospital harming him and other patients. No insight into mental illness nor need for treatment. Seen by general surgery- Dr. An on 06/15/2024- removed 600cc, may need on discharge follow up with general surgery for aspiration. LEANDER bandage 6-8 inches to decrease accumulation of fluid. Reason for continued inpatient stay Substantial Risk for: inability to function Time Spent With Patient Time: Total time managing care of this patient today ____ minutes.
[2024-06-16 11:02] VITALS: BP 141/73
[2024-06-16] MEDS: hydrOXYzine HCL 25 MG TABLET PO (12:30)
[2024-06-16 20:00] VITALS: BP 164/74; PULSE 105; RESP 18; TEMP 37.1; O2SAT 98
[2024-06-16] MEDS: Divalproex Sodium ER 250 MG TAB.ER.24H 1750 MG PO (21:27)
[2024-06-17 07:55] VITALS: BP 138/84; PULSE 100; TEMP 36.9; O2SAT 99
[2024-06-17] MEDS: Acetaminophen 325 MG TABLET 650 MG PO ×3 (09:05→22:51)
[2024-06-17] MEDS: Nicotine 21 MG PATCH.TD24 TRANSDERMA (09:05)
[2024-06-17] MEDS: cephALEXin 500 MG CAPSULE PO ×3 (09:05→20:58)
[2024-06-17] MEDS: clonazePAM 0.5 MG TABLET PO ×3 (09:05→22:24)
[2024-06-17 09:07] VITALS: BP 138/84
[2024-06-17] MEDS: Simethicone 80 MG TAB.CHEW PO ×4 (09:07→20:58)
[2024-06-17] MEDS: Methylphenidate HCl 10 MG TABLET PO ×2 (09:07→17:40)
[2024-06-17] MEDS: chlorproMAZINE HCl 100 MG TABLET PO ×4 (09:07→20:58)
[2024-06-17] MEDS: cloNIDine HCL 0.1 MG TABLET PO ×3 (09:07→20:58)
[2024-06-17] MEDS: Lidocaine 4 % Patch ADH..PATCH 2 PATCH TRANSDERMA (09:08)
[2024-06-17] MEDS: Nicotine Polacrilex 2 MG GUM 4 MG BUCCAL ×3 (09:12→15:45)
[2024-06-17] MEDS: Clotrimazole 1 % Cream 15 GM TUBE 1 APPL TOPICAL ×2 (10:01→20:59)
[2024-06-17] MEDS: hydrOXYzine HCL 25 MG TABLET PO ×2 (12:03→17:40)
[2024-06-17 13:13] VITALS: BP 134/86
--- NOTE | 2024-06-17 15:14 | P.PNPSI_ITS ---
Subjective Subjective Date of Service: 06/17/24 Reason For Visit: biploar disorder, attention deificit/hyper act. Subjective Notes: Section 7 Healthcare Proxy: No Guardianship: No Medical Problems Affecting Mental Status: No Interim History: Preparing for discharge 06/18/24. No SI/HI/AH/VH. No sx of psychosis or shanelle. Full participant in planning. Will book a room at [facility] for 06/18/24. Will book Uber as well. Order for pt to use his phone to make these arrangements. Will present to [place] probation to meet his requirements. Pt is aware he may not go to either parents home. He will ask police for assist to gather his belongings at mother's home. Team will present resources for pt for psychopharm. Messages have been left for OP therapist without return calls. Pt declines medical referral for follow up of thigh seroma. He will use urgent care/ER if needed Pt is aware he will need to go to [place] by 09/23/24 to give DNA sample to police s/p charges. Pt believes he has a court date early next week in [place] for license suspension. He will discuss with [place] probation. Pt discussed his conversations with his father, recommendation by father for [facility] and awareness that he needs to stay away from mother due to potential restraining order. He is considering filing a restraining order against mother as well for my protection. He is satisfied with current regime. Will draw labs in the a.m. that he can take with him to probation to demonstrate compliance with regime. Medication Compliance: Yes Side effects from medications: No Attending Groups: Yes Review of Systems thigh seroma resolving Medical Review of Systems: unchanged Review of Systems Review of Systems denies Mental Status Exam Mental Status Exam Patient Appearance: Appropriate Patient Orientation: Person, Place, Time and Situation Level of Consciousness: Alert Patient Behavior: Appropriate, Talkative, Cooperative, Distractible and Good Eye Contact Mood Description: Appropriate Affect Description: Appropriate Patient Cognition Impaired: No Ability to Follow Directions: Good Speech Pattern: Spontaneous Speech Memory Description: Intact Hallucinations: None Delusions: Not Present Thought Process: Intact and Goal Oriented Thought Content: positive for Intact, positive for Goal Oriented, positive for Suicidal Ideation (denies) and positive for Homicidal Ideation (denies) Depressive Symptoms: Low Self Esteem Judgement: Good Diagnostics Vital Signs (24Hr): Vital Signs - 24 hr 06/16/24 20:00 06/17/24 07:55 06/17/24 09:07 Temperature 98.7 F 98.5 F Pulse Rate 105 H 100 Respiratory Rate 18 Blood Pressure 164/74 H 138/84 138/84 Pulse Oximetry 98 99 Oxygen Delivery Method Room Air Room Air 06/17/24 13:13 Temperature Pulse Rate Respiratory Rate Blood Pressure 134/86 Pulse Oximetry Oxygen Delivery Method BMI result Body Mass Index 41.7 Labs 06/10/24 07:46 06/10/24 07:46 Imaging Radiology Impressions: ITS Impressions Knee X-Ray 06/03/24 13:00 IMPRESSION: Unremarkable left knee. Electronically signed by: Paul Burr MD 06/04/2024 01:12 PM EST RP Knee X-Ray 06/03/24 13:00 IMPRESSION: Unremarkable right knee exam. Unchanged to previous study 05/30/2024. Electronically signed by: Paul Burr MD 06/04/2024 01:11 PM EST RP Brain MRI 06/03/24 17:35 IMPRESSION: No acute brain abnormality. Low position/ectopia cerebellar tonsils. Developmental venous anomaly, right frontoparietal region. Electronically signed by: Star Alan MD 06/04/2024 09:50 AM EST RP Femur CT 06/10/24 11:07 IMPRESSION: 1. No bony fractures. 2. Large subacute appearing hematoma anterior to the vastus musculature as described. No CT evidence suggestion of compartment syndrome. Electronically signed by: Salas Yo MD 06/10/2024 12:08 PM EST RP Medications Medications Current Medications Acetaminophen (Acetaminophen 325 Mg Tablet) 650 mg PO Q6H PRN PRN Reason: Headache/Pain Mild Scale (1-3) Last Admin: 06/17/24 09:05 Dose: 650 mg Al Hydroxide/Mg Hydroxide (Magnesium Hydrox/Alum Hydrox 30 Ml Oral.Susp) 30 ml PO Q6H PRN PRN Reason: Heartburn/Nausea Last Admin: 06/03/24 05:35 Dose: 30 ml Bisacodyl (Bisacodyl 5 Mg Tablet.Dr) 10 mg PO DAILY PRN PRN Reason: Constipation Last Admin: 06/13/24 13:18 Dose: 10 mg Cephalexin HCl (Cephalexin 500 Mg Capsule) 500 mg PO TID RADHA Stop: 06/20/24 09:00 Last Admin: 06/17/24 09:05 Dose: 500 mg Chlorpromazine HCl (Chlorpromazine Hcl 100 Mg Tablet) 100 mg PO TID PRN PRN Reason: psychosis,shanelle,agitation Last Admin: 06/17/24 12:04 Dose: 100 mg Chlorpromazine HCl (Chlorpromazine Hcl 100 Mg Tablet) 100 mg PO TID RADHA Last Admin: 06/17/24 09:07 Dose: 100 mg Clonazepam (Clonazepam 0.5 Mg Tablet) 0.5 mg PO TID RADHA Last Admin: 06/17/24 09:05 Dose: 0.5 mg Clonidine HCl (Clonidine Hcl 0.1 Mg Tablet) 0.1 mg PO BID REPLACED BY [facility]; Protocol Last Admin: 06/17/24 09:07 Dose: 0.1 mg Clonidine HCl (Clonidine Hcl 0.1 Mg Tablet) 0.1 mg PO TID PRN; Protocol PRN Reason: anxiety Last Admin: 06/17/24 13:13 Dose: 0.1 mg Clotrimazole (Clotrimazole 1 % Cream 15 Gm Tube) 1 appl TOPICAL BID REPLACED BY [facility]; Protocol Last Admin: 06/17/24 10:01 Dose: 1 appl Divalproex Sodium (Divalproex Sodium Er 250 Mg Tab.Er.24h) 1,750 mg PO BEDTIME REPLACED BY [facility] Last Admin: 06/16/24 21:27 Dose: 1,750 mg Hydroxyzine HCl (Hydroxyzine Hcl 25 Mg Tablet) 25 mg PO Q4H PRN PRN Reason: Anxiety Last Admin: 06/17/24 12:03 Dose: 25 mg Ibuprofen (Ibuprofen 800 Mg Tablet) 800 mg PO Q8H PRN PRN Reason: muscle pain Last Admin: 06/16/24 16:07 Dose: 800 mg Lidocaine (Lidocaine 4 % Patch Adh..Patch) 2 patch TRANSDERMA DAILY REPLACED BY [facility]; Protocol Last Admin: 06/17/24 09:08 Dose: 2 patch Magnesium Hydroxide (Milk Of Magnesia 30 Ml Oral.Susp) 30 ml PO DAILY PRN PRN Reason: Constipation Last Admin: 06/14/24 16:34 Dose: 30 ml Melatonin (Melatonin 3 Mg Tablet) 6 mg PO BEDTIME PRN PRN Reason: Insomnia Last Admin: 06/13/24 21:50 Dose: 6 mg Methylphenidate HCl (Methylphenidate Hcl 10 Mg Tablet) 10 mg PO BID@0800,1800 REPLACED BY [facility] Last Admin: 06/17/24 09:07 Dose: 10 mg Multi-Ingred Cream/Lotion/Oil/Oint (Mineral Oil/Petrolatum,White 106 Gm Tube) 1 appl TOPICAL TID REPLACED BY [facility]; Protocol Last Admin: 06/17/24 10:03 Dose: Not Given Nicotine (Nicotine 21 Mg Patch.Td24) 21 mg TRANSDERMA DAILY REPLACED BY [facility] Last Admin: 06/17/24 09:05 Dose: 21 mg Nicotine Polacrilex (Nicotine Polacrilex 2 Mg Gum) 4 mg BUCCAL Q2H PRN PRN Reason: Nicotine Cravings Last Admin: 06/17/24 12:04 Dose: 4 mg Pt Own (Act Dry Mouth Gum 1 Piece Of Gum) 1 piece of gum PO TID PRN PRN Reason: dry mouth Last Admin: 06/15/24 11:52 Dose: 1 piece of gum Olanzapine (Olanzapine Odt 10 Mg Tab.Rapdis) 10 mg TRANSLINGU BID PRN PRN Reason: agitation Last Admin: 06/12/24 23:24 Dose: 10 mg Simethicone (Simethicone 80 Mg Tab.Chew) 80 mg PO QIDWMHS REPLACED BY [facility] Last Admin: 06/17/24 12:04 Dose: 80 mg Trazodone HCl (Trazodone Hcl 50 Mg Tablet) 50 mg PO BEDTIME MRX1 PRN PRN Reason: Insomnia Last Admin: 06/13/24 21:52 Dose: 50 mg Allergies Allergies Allergy/AdvReac Type Severity Reaction Status Date / Time No Known Allergies Allergy Verified 05/29/24 00:47 Assessment & Plan Assessment & Plan (1) Bipolar 1 disorder: Status: Acute Code(s): F31.9 - Bipolar disorder, unspecified (2) ADHD: Status: Acute Code(s): F90.9 - Attention-deficit hyperactivity disorder, unspecified type Plan 06/12/24: Continue regime Hospitalist consult 06/13/2024: Continue current regimen and plans 06/14/2024: Continue current regimen and plans. Oxycodone for 24 hours ordered 06/15/2024: Continue current regime and care plan. Surgical consult ordered. 06/16 methylphenidate may be exacerbating delusions and psychosis. Continues to present with paranoid delusions of hospital harming him and other patients. No insight into mental illness nor need for treatment. Seen by general surgery- Dr. An on 06/15/2024- removed 600cc, may need on discharge follow up with general surgery for aspiration. LEANDER bandage 6-8 inches to decrease accumulation of fluid. 06/17 Coverage note of 06/16 appreciated. Pt has a history of treatment success with methylphenidate. A lower dose was re-started during this admission to assist with focus and it has been effective in the context of his care. Pt has shared a history of trauma and we have learned throughout this admission that he becomes very verbally aggressive, threatening and grandiose when he feels unheard or that we will not compromise with him. As a result there is a very strong characterological component that will need ongoing work in his therapy. Medications/treatment were discussed at length with pt today with understanding and agreement that compliance is a condition of probation and for ongoing stability. Discharge planning completed today with pt, Hazel Rodríugez LCSW. Parents have been informed. Pt will discharge on 06/18. Reason for continued inpatient stay Substantial Risk for: rapid decompensation Time Spent With Patient Time: Total time managing care of this patient today ____ minutes.
[2024-06-17] MEDS: Ibuprofen 800 MG TABLET PO (17:40)
[2024-06-17 19:41] VITALS: BP 146/78; PULSE 99; TEMP 36.3; O2SAT 100
[2024-06-17 20:58] VITALS: BP 146/78
[2024-06-17] MEDS: Divalproex Sodium ER 250 MG TAB.ER.24H 1750 MG PO (20:58)
[2024-06-18] MEDS: Ibuprofen 800 MG TABLET PO (03:27)
[2024-06-18] MEDS: Nicotine Polacrilex 2 MG GUM 4 MG BUCCAL ×3 (05:02→11:02)
[2024-06-18 05:03] VITALS: BP 150/83
[2024-06-18] MEDS: cloNIDine HCL 0.1 MG TABLET PO ×3 (05:03→11:02)
[2024-06-18 07:53] VITALS: BP 142/84; PULSE 109; TEMP 36.2; O2SAT 99
[2024-06-18 08:21] LABS: Hematocrit 39.1 % (42.0-52.0); Hemoglobin 12.8 g/dl (14.0-18.0); Mean Corpuscular HGB Conc 32.7 g/dl (31.0-36.0); Mean Corpuscular Volume 91.6 fL (80.0-98.0); Mean Platelet Volume 9.2 fL (9.4-12.4); Platelet Count 481 X10*3/uL (160-400); Red Blood Count 4.27 X10*6/uL (4.60-5.80); Red Cell Distribution Width 13.2 % (11.0-16.0)
[2024-06-18 08:23] LABS: WBC ABN SCTR FOR CBC 1
[2024-06-18] MEDS: Mineral Oil/Petrolatum,White 106 GM Tube 1 APPL TOPICAL (08:24)
[2024-06-18] MEDS: Simethicone 80 MG TAB.CHEW PO (08:25)
[2024-06-18] MEDS: Nicotine 21 MG PATCH.TD24 TRANSDERMA (08:25)
[2024-06-18] MEDS: cephALEXin 500 MG CAPSULE PO (08:25)
[2024-06-18] MEDS: chlorproMAZINE HCl 100 MG TABLET PO (08:26)
[2024-06-18] MEDS: clonazePAM 0.5 MG TABLET PO (08:26)
[2024-06-18] MEDS: Clotrimazole 1 % Cream 15 GM TUBE 1 APPL TOPICAL (08:27)
[2024-06-18 08:31] LABS: Valproate 50.1 mcg/mL (50.0-100.0)
[2024-06-18 08:38] LABS: Alanine Aminotransferase 27 U/L (0-40); Albumin Level 3.7 g/dL (3.5-5.0); Alkaline Phosphatase 85 U/L (39-117); Anion Gap 13 (12-20); Aspartate Amino Transferase 25 U/L (5-37); Bilirubin Total 0.2 mg/dL (0.0-1.0); Blood Urea Nitrogen 14 mg/dL (9-16); Calcium 9.4 mg/dL (8.4-10.2); Carbon Dioxide 25 mmol/L (22-29); Chloride 109 mmol/L (96-108); Creatinine Clr Calc Pharmacy 177.3; Estimated Glomerular Filt Rate > 60; Glucose Random 97 mg/dL (60-115); Potassium 5.1 mmol/L (3.3-5.1); Sodium 142 mmol/L (135-145); Total Protein 6.8 g/dL (6.5-8.0)
[2024-06-18] MEDS: Methylphenidate HCl 10 MG TABLET PO (08:52)
[2024-06-18 09:12] LABS: Band Neutrophils Percent 3 % (3-5); Eosinophils Percent Manual 3 % (0-4); Lymphocytes Percent Manual 16 % (20-40); Metamyelocytes Percent 4 %; Monocytes Percent Manual 9 % (2-11); Myelocytes Percent 2 %; Neutrophils Percent Manual 63 % (45-73)
[2024-06-18 09:15] LABS: Platelet Estimate NORMAL (NORMAL); RBC Morphology NORMAL
[2024-06-18 09:16] LABS: Eosinophils Absolute Manual 0.4 X10*3/uL (0.0-0.4); Lymphocytes Absolute Manual 2.2 X10*3/uL (1.2-4.9); Metamyelocytes Absolute 0.6 X10*3/uL; Monocytes Absolute Manual 1.3 X10*3/uL (0.1-1.2); Myelocytes Absolute 0.3 X10*/uL; Neutrophils Absolute Manual 9.2 X10*3/uL (2.0-8.3); Platelet Morphology Comment NORMAL; White Blood Count 13.9 X10*3/uL (4.8-10.8)
[2024-06-18] MEDS: [UNRECOGNIZED DRUG - OTHER] 1 EACH PO (10:27)
[2024-06-18 11:02] VITALS: BP 139/99
[2024-06-18] MEDS: Acetaminophen 325 MG TABLET 650 MG PO (11:02)
[2024-06-18] MEDS: hydrOXYzine HCL 25 MG TABLET PO (11:02)
--- NOTE | 2024-06-18 11:04 | PM.PSYDC ---
DS: Providers Provider Date of admission: 05/28/24 23:45 Primary care physician: Unknown Physician Consults: 05/30/24 14:43 Consult to Hospitalist Routine Comment: Consulting Provider[place] [facility] Reason For Exam: Sig right leg swell/pain. RTA 1 wk ago. Xrays pend 06/10/24 05:56 Consult to General Surgery Routine Consulting Provider: [facility] Reason for consultation: right thigh cellulitis Has provider been notified: Yes Consult to Hospitalist Stat Comment: Consulting Provider: [facility] Reason For Exam: worsening right thigh cellulitis 06/11/24 09:38 Consult to General Surgery Routine Consulting Provider: [facility] Reason for consultation: wound edema, hot to touch, t 99.6, pain Has provider been notified: No 06/12/24 15:14 Consult to Hospitalist Routine Comment: increase in edema, progressing in his leg per team Consulting Provider: [facility] Reason For Exam: s/p seroma w/aspiration x 2, eval for HTN 06/15/24 09:14 Consult to General Surgery Stat Consulting Provider: [facility] Reason for consultation: Thigh wound is deteriorated, increased in size DS: Diagnosis Discharge Diagnosis (1) Bipolar 1 disorder: Status: Acute (2) ADHD: Status: Acute DS: Medications Discharge Medications Home Medications: Previous Rx's ?Medication ?Instructions ?Recorded Act Dry Mouth Gum 1 piece of gum PO TID PRN ##0 06/17/24 acetaminophen 325 mg tablet 650 mg (2 x 325 mg) PO Q6H PRN 06/17/24 Headache/Pain Mild Scale (1-3) #0 tabs aluminum-magnesium hydroxide 200 30 ml PO Q6H PRN Heartburn/Nausea 06/17/24 mg-200 mg/5 mL oral suspension #0 mL (MAG-AL) bisacodyl 5 mg tablet,delayed 10 mg (2 x 5 mg) PO DAILY PRN 06/17/24 release Constipation #0 tabs cephalexin 500 mg capsule 500 mg PO TID #9 caps 06/17/24 chlorpromazine 100 mg tablet 100 mg PO TID #28 tabs 06/17/24 clonazepam 0.5 mg tablet (Klonopin) 0.5 mg PO TID #21 tabs 06/17/24 clonidine HCl 0.1 mg tablet 0.1 mg PO BID #14 tabs 06/17/24 clotrimazole 1 % topical cream 1 appl topical BID #0 grams 06/17/24 divalproex 250 mg tablet,extended 250 mg PO BEDTIME #7 tabs 06/17/24 release 24 hr (Depakote ER) divalproex 500 mg tablet,extended 1,750 mg (3.5 x 500 mg) PO BEDTIME 06/17/24 release 24 hr (Depakote ER) #21 tabs hydroxyzine HCl 25 mg tablet 25 mg PO Q4H PRN Anxiety #14 tabs 06/17/24 ibuprofen 800 mg tablet 800 mg PO Q8H PRN muscle pain #0 06/17/24 tabs lidocaine 4 % topical patch 2 patch transdermal DAILY #14 ea 06/17/24 (Lidocaine Pain Relief) magnesium hydroxide 400 mg/5 mL 30 ml PO DAILY PRN Constipation #0 06/17/24 oral suspension (Milk of Magnesia) mL melatonin 3 mg tablet 6 mg (2 x 3 mg) PO BEDTIME PRN 06/17/24 Insomnia #14 tabs methylphenidate HCl 10 mg tablet 10 mg PO BID@0800,1800 #14 tabs 06/17/24 nicotine 21 mg/24 hr daily 21 mg transdermal DAILY #15 ea 06/17/24 transdermal patch simethicone 80 mg chewable tablet 80 mg PO QIDWMHS #0 tabs 06/17/24 (Gas Relief (simethicone)) trazodone 50 mg tablet 50 mg PO BEDTIME MRX1 PRN Insomnia 06/17/24 #14 tabs white petrolatum-mineral oil 1 appl topical TID #0 grams 06/17/24 topical cream (Dermacerin topical cream) Data Data Completed and Pending Completed studies during hospitalization [Text1]: 06/18/24 08:02 WBC 13.9 H RBC 4.27 L Hgb 12.8 L Hct 39.1 L MCV 91.6 MCH 30.0 MCHC 32.7 RDW 13.2 Plt Count 481 H D MPV 9.2 L Immature Gran % (Auto) Cancelled Neut % (Auto) Cancelled Lymph % (Auto) Cancelled [place] % (Auto) Cancelled Eos % (Auto) Cancelled Baso % (Auto) Cancelled Lymph # (Auto) Cancelled [place] # (Auto) Cancelled Eos # (Auto) Cancelled Baso # (Auto) Cancelled Abs Immat Gran (auto) Cancelled Absolute Neuts (auto) Cancelled Absolute Nucleated RBC 0.000 Nucleated RBC % (auto) 0.0 Neutrophils % (Manual) 63 Band Neutrophils % 3 Lymphocytes % (Manual) 16 L Monocytes % (Manual) 9 Eosinophils % (Manual) 3 Metamyelocytes % 4 Myelocytes % 2 Abs Neuts (Manual) 9.2 H Lymphocytes # (Manual) 2.2 Monocytes # (Manual) 1.3 H Eosinophils # (Manual) 0.4 Metamyelocytes # 0.6 Myelocytes # 0.3 Platelet Estimate NORMAL Plt Morphology Comment NORMAL RBC Morphology NORMAL Sodium 142 Potassium 5.1 D Chloride 109 H Carbon Dioxide 25 Anion Gap 13 BUN 14 Creatinine 0.93 Estim Creat Clear Calc 177.3 Estimated GFR > 60 Random Glucose 97 Calcium 9.4 D Total Bilirubin 0.2 AST 25 ALT 27 Alkaline Phosphatase 85 Total Protein 6.8 Albumin 3.7 Valproic Acid 50.1 Imaging Diagnostic Imaging Impressions Knee X-Ray 06/03/24 13:00 IMPRESSION: Unremarkable left knee. Electronically signed by: Paul Burr MD 06/04/2024 01:12 PM EST RP Knee X-Ray 06/03/24 13:00 IMPRESSION: Unremarkable right knee exam. Unchanged to previous study 05/30/2024. Electronically signed by: Paul Burr MD 06/04/2024 01:11 PM EST RP Brain MRI 06/03/24 17:35 IMPRESSION: No acute brain abnormality. Low position/ectopia cerebellar tonsils. Developmental venous anomaly, right frontoparietal region. Electronically signed by: Star Alan MD 06/04/2024 09:50 AM EST RP Femur CT 06/10/24 11:07 IMPRESSION: 1. No bony fractures. 2. Large subacute appearing hematoma anterior to the vastus musculature as described. No CT evidence suggestion of compartment syndrome. Electronically signed by: Salas Yo MD 06/10/2024 12:08 PM EST RP DS: Summary Time Spent with Patient Time attestation: Total time managing care of this patient today ____ minutes. Discharge Plan Discharge Anticipated Discharge Date/Time: 06/18/24 12:00 Patient Disposition: Xfer Other Discharge Diagnosis: Bipolar Disorder ADHD Cannabis Use Disorder Seroma, thigh Referrals: [facility] [Other] - 3-5 Days (This is a walk in same day intake for therapy and psychiatry. let them know you have recently discharged from inpt and they will prioritize you. RERE recommends you walk in within the next three to five days as it will take time to get an appt with a medication provider. ) [facility] Michael Stevens Counselor [Other] - 1 Week (RERE spoke w [facility] and was told Michael would need to refer you to psychiatry due to your case having been closed due to you declining services with them in October 2023. Please contact Michael if you intend to continue with [facility], as erre had not been able to get in direct contact w him. ) [employer] Megan Fair [facility] [Other] - 06/18/24 1:00 pm (You will need to report to probation upon your discharge, 06/18/24.) Tatyana Xie (Primary Care Provider) [Other] - 06/23/24 1:30 pm (Primary Care Provider ) Discharge Medications: New clonidine HCl 0.1 mg Tablet 0.1 mg PO BID Qty: 14 4RF Protocol: Hold for SBP< HOLD for SBP < : 90 cephalexin 500 mg Capsule 500 mg PO TID Qty: 9 0RF nicotine 21 mg/24 hr Patch 24 Hour 21 mg transdermal DAILY Qty: 15 1RF lidocaine [Lidocaine Pain Relief] 4 % Adhesive Patch,Medicated 2 patch transdermal DAILY Qty: 14 2RF Protocol: Apply to: Apply to: leg trazodone 50 mg Tablet 50 mg PO BEDTIME MRX1 PRN (Reason: Insomnia) Qty: 14 2RF methylphenidate HCl 10 mg Tablet 10 mg PO BID@0800,1800 Qty: 14 0RF Rx Instructions: Partial Fill upon patient request. melatonin 3 mg Tablet 6 mg PO BEDTIME PRN (Reason: Insomnia) Qty: 14 2RF hydroxyzine HCl 25 mg Tablet 25 mg PO Q4H PRN (Reason: Anxiety) Qty: 14 2RF Act Dry Mouth G 1 piece of gum PO TID PRNQty: 0 0RF acetaminophen 325 mg Tablet 650 mg PO Q6H PRN (Reason: Headache/Pain Mild Scale (1-3)) Qty: 0 0RF ibuprofen 800 mg Tablet 800 mg PO Q8H PRN (Reason: muscle pain) Qty: 0 0RF magnesium hydroxide [Milk of Magnesia] 400 mg/5 mL Suspension 30 ml PO DAILY PRN (Reason: Constipation) Qty: 0 0RF bisacodyl 5 mg Tablet,Delayed Release (Dr/Ec) 10 mg PO DAILY PRN (Reason: Constipation) Qty: 0 0RF clotrimazole 1 % Cream 1 appl topical BID Qty: 0 0RF Protocol: Apply to: Apply to: affected areas simethicone [Gas Relief (simethicone)] 80 mg Tablet,Chewable 80 mg PO QIDWMHS Qty: 0 0RF Dermacerin Cream 1 appl topical TID Qty: 0 0RF Protocol: Apply to: Apply to: hands MAG-AL 200-200 mg/5 mL Suspension 30 ml PO Q6H PRN (Reason: Heartburn/Nausea) Qty: 0 0RF divalproex [Depakote ER] 500 mg tablet extended release 24 hr 1,750 mg PO BEDTIME Qty: 21 2RF Rx Instructions: Take 3 tablets, along with a 250 mg tablet at bedtime divalproex [Depakote ER] 250 mg tablet extended release 24 hr 250 mg PO BEDTIME Qty: 7 2RF Rx Instructions: Take one tablet at bedtime, along with #3 500 mg tablets to equal 1750 mg at bedtime. chlorpromazine 100 mg tablet 100 mg PO TID Qty: 28 2RF Rx Instructions: Take 1 tab three times a day and 1 tablet daily as needed clonazepam [Klonopin] 0.5 mg tablet 0.5 mg PO TID Qty: 21 0RF Discontinued divalproex 250 mg Tablet Extended Release 24 Hr 250 mg PO DAILY olanzapine 10 mg Tablet 10 mg PO BEDTIME hydroxyzine HCl 25 mg Tablet 25 mg PO TID PRN (Reason: Itching) Discharge Orders: Discharge Order (Routine); Ordered 06/18/24 Ordered By: Jennifer Batista Diet: Advance to usual diet Activity on Discharge: As tolerated Stand Alone Forms: Patient Portal Discharge page, Community Support Print Language: Panamanian Care Plan Goals: Mood and Behavioral Stabilization Abstinence from Substance Use Ongoing monitoring of Seroma which you would like to schedule independently Health Concerns: Mood and Behavioral Stabilization Abstinence from Substance Use Ongoing monitoring of Seroma which you would like to schedule independently Plan of Treatment: Attend scheduled appointments Take medications as directed [facility] will blister pack your medications to assist you with compliance. Assessment: No SI, HI, AH, VH. No sx of acute shanelle or psychosis Pt is in agreement with plan.
== END 2024-06-18 11:32 | disposition other institution (70) | DRG 885 ==
PROVIDERS: Physician Assistant; Psychiatry & Neurology Psychiatry; Admitting Provider Psychiatry & Neurology Psychiatry; Visit Provider Clinical Nurse Specialist Psychiatric/Mental Health, Adult
DX: F31.9 Bipolar disorder, unspecified (principal); R45.851 Suicidal ideations; F17.210 Nicotine dependence, cigarettes, uncomplicated; Z71.6 Tobacco abuse counseling; F90.9 Attention-deficit hyperactivity disorder, unspecified type; F12.90 Cannabis use, unspecified, uncomplicated; I10 Essential (primary) hypertension; R45.850 Homicidal ideations; S70.11XA Contusion of right thigh, initial encounter; Y93.55 Activity, bike riding; Z79.899 Other long term (current) drug therapy
CPT/HCPCS: 36415; 70551; 72170; 73552; 73560; 73701; 80053; 80061; 80076; 80164; 82140; 82550; 82607; 82746; 83036; 84443; 85007; 85025; 85027; 85652; 86140; 93971; Q9967

== ENCOUNTER 2024-05-28 23:45 | Outpatient (BNV) | payer OTHER, SELFPAY | END 2024-06-10 11:07 | PROVIDERS: Admitting Provider Psychiatry & Neurology Psychiatry; Visit Provider Radiology Diagnostic Radiology | DX: S70.11XA Contusion of right thigh, initial encounter (principal) | CPT/HCPCS: 73701 ==

== ENCOUNTER → 2024-05-28 23:45 | Outpatient (BNV) | payer OTHER, SELFPAY | PROVIDERS: Admitting Provider Psychiatry & Neurology Psychiatry; Visit Provider Surgery | DX: S70.11XA Contusion of right thigh, initial encounter (principal) | CPT/HCPCS: 10160; 99222 ==

== ENCOUNTER → 2024-05-28 23:45 | Outpatient (BNV) | payer OTHER, SELFPAY | PROVIDERS: Admitting Provider Psychiatry & Neurology Psychiatry; Visit Provider Psychiatry & Neurology Psychiatry | DX: F31.2 Bipolar disorder, current episode manic severe with psychotic features (principal); F90.9 Attention-deficit hyperactivity disorder, unspecified type; M79.89 Other specified soft tissue disorders | CPT/HCPCS: 90792; 99232 ==

== ENCOUNTER → 2024-05-28 23:45 | Outpatient (BNV) | payer OTHER, SELFPAY | PROVIDERS: Admitting Provider Psychiatry & Neurology Psychiatry; Visit Provider Student in an Organized Health Care Education/Training Program | DX: M79.89 Other specified soft tissue disorders (principal) | CPT/HCPCS: 99222 ==